=== PATIENT | female | born 1935 | race Caucasian/White ===

== ENCOUNTER → 2016-09-01 | Outpatient (CLI) | payer OTHER ==
[~2016-09-01] VITALS: Ht 157.5 cm; Wt 82.6 kg
[~2016-09-01] MED LIST: ALEVE220 M1 PO; ALLEVIATE PO; ASPIRIN325 PO; AUGMENTIN 875875 MG PO; CALCIUM 600 MG1 EAC2 PO; CELEBREX 200 M200 MG PO; CENTRUM SILVER1 EAC6 PO; CYMBALTA30 MG PO; FISH OIL 1,0001 EAC7 PO; GABAPENTIN PO; HYDROCHLOROT PO; HYDROCHLOROTH12.5 MG PO; HYDROCHLOROTHIA25 M2; HYDROCHLOROTHIA25 M2 PO; IBUPROFEN 200200 M1 PO; IBUPROFEN200 M2 PO; KEFLEX500 MG PO; LEVOTHYROXINE0.05 MG PO; MACULAR SHIELD PO; MACULAR VITAMI0.5 MG PO; MELOXICAM7.5 MG PO; MOBIC7.5 MG PO; MUPIROCIN15 GM; NORCO 5-325 TA1 EACH PO; PRESERVISION T1 EACH PO; SYNTHROID75 MCG PO; TIROSINT75 MCG PO; TOPROL XL25 MG PO; TRAMADOL 50 MG50 MG PO; XARELTO15 MG PO; XARELTO20 MG PO; [UNRECOGNIZED DRUG - OTHER]
--- NOTE | ~2016-09-01 | HPC ---
[facility] [place] [address] PAIN MANAGEMENT CONSULTATION Name: KO HARRISON Room #: REG NIA Gregory#: [id number] Admission: 09/01/16 Attend Phys: Claudio Faustin DO Discharge: Date of : 37 Report #: [id number] THIS REPORT FOR: //name// CC: Raul Faustin HISTORY OF PRESENT ILLNESS: The patient is a very pleasant 81-year-old female typically treated for SI joint dysfunction and lumbar radiculopathy, a component of axial back pain and lumbosacral spondylosis. She has done well with occasional bilateral SI joint injections, last injection being 05/26/2016. She prior had had SI joint injections in February, January, and June of last year. She returns to the pain clinic today noting that despite good relief from the last SI joint injections (90% relief for about 8 weeks), pain is beginning to recur. She notes pain is about 5/10 presently, burning, tender, shooting pain in the low back, bilateral, radiating into the buttocks, but not down the leg. PHYSICAL EXAMINATION: GENERAL: Shows a 81-year-old female with a BMI of 33.3 kilograms per meter squared. Again, subjective pain score is 5 on a 0-10 visual analog scale. VITAL SIGNS: Stable as noted in the EMR. MUSCULOSKELETAL: Rises from a chair using armrest. Gait is tandem. Diffuse tenderness across the SI joints. Positive Jared test bilaterally. ASSESSMENT: Symptomatic sacroiliac joint dysfunction, lumbosacral spondylosis, component of axial back pain, prior history of lumbar radiculopathy, though the latter symptom is relatively quiescent at present. RECOMMENDATION: Repeat SI joint injection under fluoroscopy today. Renewed tramadol 50 mg 100 tablets with two refills. Directions to take one tablet 3-4 times a day as needed for pain. Strongly recommend patient review prior home exercises given by physical therapy and utilize these on a more regular basis to help stabilize SI joint malalignment and movement. PROCEDURE: Bilateral SI joint injection under fluoroscopy. PROCEDURE NOTE: After written and informed consent was obtained including risk of infection, nerve trauma, increased pain and weakness, the patient wishes to proceed. The patient was taken to the fluoroscopy suite, placed in the prone position. The sacroiliac joint was visualized using the C-arm, turned in an oblique fashion to align the joint. The skin overlying the area was cleansed with ChloraPrep. Skin wheal with Xylocaine was raised. A 22 gauge spinal needle was inserted into the inferior aspect of the joint. A low volume extension tubing was then attached to the needle after the stylet was removed. Negative aspiration was accomplished. A 1 mL of Omnipaque was injected which showed spread within the SI joint. 40 mg triamcinolone plus 2 mL of 0.5% [address] [address] PAIN MANAGEMENT CONSULTATION Name: HUNTERAXEL Room #: REG CL Bri#: [id number] Admission: 09/01/16 Attend Phys: Claudio Faustin DO Discharge: Date of : 37 Report #: [id number] preservative-free bupivacaine was injected into the joint. Needle was removed. Attention was then turned to the contralateral joint which was treated in an identical fashion. After both needles were removed the prep was washed off. Two Band-Aids were applied over the puncture sites. The patient was allowed to ambulate to the recovery room, monitored for an appropriate period of time, discharged in good and stable condition. By: 1056 1145 Claudio Faustin DO /madison
[2016-09-01 09:29] VITALS: BP 117/47
== END | disposition home or self-care (01) ==
LOC: PAIN 06:53
DX: M53.3 Sacrococcygeal disorders, not elsewhere classified (principal); G89.29 Other chronic pain; M47.897 Other spondylosis, lumbosacral region; M54.16 Radiculopathy, lumbar region

== ENCOUNTER → 2016-11-13 | Outpatient (CLI) | payer OTHER | LOC: ULTRA 09:31 | DX: M79.605 Pain in left leg (principal); R60.0 Localized edema; Z91.81 History of falling ==

== ENCOUNTER → 2016-12-01 | Outpatient (CLI) | payer OTHER ==
[~2016-12-01] VITALS: Ht 157.5 cm; Wt 83.3 kg
[2016-12-01 10:31] VITALS: BP 107/71
== END | disposition home or self-care (01) ==
LOC: PAIN 06:51
DX: M53.3 Sacrococcygeal disorders, not elsewhere classified (principal); G89.29 Other chronic pain; M47.897 Other spondylosis, lumbosacral region; M54.5 Low back pain; F11.20 Opioid dependence, uncomplicated; Z86.711 Personal history of pulmonary embolism; Z88.8 Allergy status to other drugs, medicaments and biological substances; Z79.899 Other long term (current) drug therapy; Z98.890 Other specified postprocedural states

== ENCOUNTER → 2016-12-25 | Outpatient (CLI) | payer OTHER ==
[~2016-12-25] VITALS: Ht 160 cm; Wt 81.6 kg
--- NOTE | ~2016-12-25 | S ---
[facility] [place] [address] SURGICAL PATH RPT PROCEDURE Name: TRISH HARPER Room #: REG NIA Leanna.#: [id number] Admission: 12/25/16 Date of : 39 Discharge: Report #: [id number] Path Case #: [id number] PATHOLOGY REPORT COLLECTION DATE: 12/25/2016 RECEIVED DATE: 12/25/2016 SUBMITTING PHYS: Dr. Sam Russo OTHER PHYS: Dr. Raul Manley SPECIMEN(S) RECEIVED: A.Bx of mass lesion cecum B.Polyp @ ascending colon x 2 C.Polyp @ hepatic flexure D.Polyp @ transverse colon x3 E.Polyp @ 60cm * * * * * * * * * * * * FINAL DIAGNOSIS: A. Large intestine, mass lesion cecum, endoscopic biopsy: - Superficial fragments of a tubulovillous adenoma. - Negative for high grade dysplasia or invasive malignancy. B. Polyp x 2, at ascending colon, endoscopic biopsy: - All fragments showing tubular adenoma. - Negative for high-grade dysplasia. C. Polyp, at hepatic flexure, endoscopic biopsy: - Minute tubular adenoma. - Negative for high-grade dysplasia. D. Polyp, at transverse colon, endoscopic biopsy: - Tubular adenoma present in multiple fragments. - Negative for high-grade dysplasia. E. Polyp, at 60 cm, endoscopic biopsy: - Tubular adenoma. - Negative for high-grade dysplasia. COMMENT: Part A only co-reviewed by Dr. Jaskaran Gill who concurs with the diagnosis. (IUV:mgr; 12/27/2016) PATHOLOGIST: Ana Richardson M.D. REPORT ELECTRONICALLY SIGNED BY: Ana Richardson M.D. DATE/TIME: 12/27/2016 15:23 * * * * * * * * * * * * GROSS PATHOLOGY: A. Received in formalin labeled "Trish Harper, biopsy of mass lesion [address] [address] SURGICAL PATH RPT PROCEDURE Name: TRISH HARPER Room #: [facility] [id number] Admission: 12/25/16 Date of : 37 Discharge: Report #: [id number] Path Case #: [id number] cecum," are seven segments of jesus soft tissue measuring 0.7 x 0.7 x 0.3 cm in aggregate dimensions and ranging from 0.1 to 0.2 cm in maximum dimension. The specimen is submitted entirely in cassette A1. B. Received in formalin labeled "Trish Harper, polyp at ascending colon 2," are four segments of jesus soft tissue measuring 0.6 x 0.5 x 0.3 cm in aggregate dimensions and ranging from 0.1 to 0.3 cm in maximum dimension. The specimen is submitted entirely in cassette B1. C. Received in formalin labeled "Trish Harper, polyp at hepatic flexure," are two segments of jesus soft tissue measuring 0.6 x 0.4 x 0.3 cm in aggregate dimensions and ranging from 0.2 to 0.4 cm in maximum dimension. The specimen is submitted entirely in cassette C1. D. Received in formalin labeled "Trish Harper, polyp at transverse colon," are nine segments of jesus soft tissue measuring 1.0 x 0.7 x 0.3 cm in aggregate dimensions and ranging from 0.3 to 0.4 cm in maximum dimension. The specimen is submitted entirely in cassette D1. E. Received in formalin labeled "Trish Victorlin, polyp at 60 cm," are six segments of jesus soft tissue measuring 0.7 x 0.6 x 0.3 cm in aggregate dimensions and ranging from 0.1 to 0.3 cm in maximum dimension. The specimen is submitted entirely in cassette E1. ([facility]; 12/26/2016) CLINICAL HISTORY: History of polyps INITIAL CPT CODE(S): A; 66018 B; 61170 C; 42075 D; 01491 E; 34426 Professional services performed by [facility] at [facility] [address], [place] [address] Technical services performed by [facility] at [address] [place] [address], [address], [place] [address]. [facility] [address] [place] [address] PHONE: [phone] DIRECTOR: Brock Son M.D. * * * END OF REPORT * * *
--- NOTE | ~2016-12-25 | P ---
[facility] [place] [address] PROCEDURE REPORT Name: HUNTERKO Nakia Room #: [facility] [id number] Admission: 12/25/16 Attend Phys: Sam Russo MD Discharge: Date of : 37 Report #: [id number] THIS REPORT FOR: //name// CC: Raul Manley DO Sam Russo BRIEF HISTORY: The patient is a 81-year-old woman with a history of colon polyps for high-risk screening colonoscopy. POSTOPERATIVE DIAGNOSES: 1. Mass lesion, cecum. 2. Multiple colon polyps. 3. Moderate diverticulosis coli. MEDICATIONS: Deep sedation with propofol per anesthesia. SPECIMENS: 1. Biopsies of cecal mass lesion. 2. Polyps in the ascending colon times 2. 3. Hepatic flexure polyp. 4. Colon polyps times 3. 5. Polyp at 60. ESTIMATED BLOOD LOSS: 300 mL. PROCEDURE: Colonoscopy to the terminal ileum with snare polypectomy and biopsy. FINDINGS: Prior to propofol sedation, procedure of colonoscopy was discussed with the patient as well as potential risks and its complications. She indicates she understands and desires to proceed. DESCRIPTION OF PROCEDURE: With the patient in the left lateral decubitus position, digital examination was completed, which revealed no abnormalities. Subsequently, [employer] video colonoscope was introduced into the rectum, advanced under direct vision to the cecum. Done with minimal difficulty. The cecum was identified by the ileocecal valve and the appendiceal orifice. I was able to briefly advance the scope across the ileocecal valve and visualize the distal terminal ileum. At that point, the scope was slowly withdrawn and careful circumferential views obtained. Examination of the cecum revealed a polypoid mass lesion essentially at the junction of the ascending colon and the cecum. It was a very bulky mass and thought to be about 4 cm in greatest dimension. It was also over a fold. It appeared to be a sessile polyp. I could not visualize the entire base of the polyp. Essentially, the polyp was depressed, raising a possibility this may be a malignant process, although it did not appear to be overtly malignant. At that point, the scope was slowly withdrawn and careful circumferential views obtained. As we withdrew the scope, multiple biopsies [facility] [address] [place] [address] PROCEDURE REPORT Name: KO HARRISON Room #: [id number] Admission: 12/25/16 Attend Phys: Sam Russo MD Discharge: Date of : 37 Report #: [id number] were obtained of the polypoid cecal mass lesion. In the proximal ascending colon, 2 sessile polyps were seen in the range of 5-7 mm and both were removed by cold snare polypectomy. At the hepatic flexure, a diminutive polyp was seen and removed by biopsy forceps. In the mid transverse colon, there were a total of 3 polyps; 2 were sessile in the range of about 5-6 mm, removed by cold snare polypectomy. There was a diminutive polyp removed by biopsy. At 60 cm, another diminutive polyp was seen and removed by biopsy. Scope was further withdrawn and no additional polypoid lesions were seen. Scope was withdrawn in the rectum and upon retroflexion, no abnormalities were seen. Scope was withdrawn. The patient tolerated the procedure well. CONDITION OF THE PATIENT UPON DISCHARGE: Following procedure, the patient drowsy, aroused and conversant. She will be discharged home when fully ambulatory. INSTRUCTIONS TO THE PATIENT AND FAMILY AT THE TIME OF DISCHARGE: Multiple polyps identified and removed as described above. The cecal mass lesion was quite bulky and I could not see the entire base and it felt to be too large to remove safely endoscopically. Therefore, multiple biopsies obtained. In addition, there was some depression in the center of the polyp, raising a possibility this may be a malignant process. We will follow up on the path report and make further recommendations. However, she is going to need surgical intervention for the large cecal polypoid mass lesion. The remainder of the colon was clear of polyps. We will follow up on path and make further recommendation, but may need to consider followup colon exam in 1 year. We will discuss further with the patient. <ELECTRONICALLY SIGNED> By: Sam Russo MD 12/26/16 0744 0833 1425 Sam Russo MD /nt
== END ==
LOC: GI
DX: Z09 Encounter for follow-up examination after completed treatment for conditions other than malignant neoplasm (principal); Z87.19 Personal history of other diseases of the digestive system; D12.2 Benign neoplasm of ascending colon; D12.3 Benign neoplasm of transverse colon; D12.4 Benign neoplasm of descending colon; K57.30 Diverticulosis of large intestine without perforation or abscess without bleeding
CPT/HCPCS: 62110; 62900

== ENCOUNTER 2017-01-30 08:38 | Inpatient (IN) | payer OTHER ==
[~2017-01-30] VITALS: Ht 157.5 cm; Wt 75.7 kg
--- NOTE | ~2017-01-30 | EKG ---
[place] [address] [employer] [facility] [place] [address] ELECTROCARDIOGRAM REPORT Name: KO HARRISON Room #: 432-P ADM IN M.R.#: [id number] Admission: 01/30/17 Attend Phys: Raul Watson DO Discharge: Date of : 37 Report #: [id number] THIS REPORT FOR: //name// [facility] ED Test Date: 2017-01-30 Test Time: 09:41:01 Pat Name: KO HARRISON Department: Room: 432 Gender: F Presidential Support Specialist: Dilip TELLO : 1935 Requested By: Damian Laguna Order Number: [id number] MD: Victor Hugo Wall Measurements Intervals Bolt Rate: 76 P: -2 NH: 153 QRS: 16 QRSD: 97 T: 38 QT: 416 QTc: 468 Interpretive Statements Sinus rhythm Abnormal R-wave progression, early transition Compared to ECG 08/17/2014 11:44:[address] and T-wave abnormality no longer present QT interval has shortened Electronically Signed On 01-30-2017 17:58:34 CDT by Victor Hugo Wall [email or web address] <ELECTRONICALLY SIGNED> By: Victor Hugo Wall MD, [facility] 01/30/17 1758 0941 0941 Victor Hugo Wall MD, [facility] /EPI
[2017-01-30 08:46] VITALS: BP 99/65
[2017-01-30] MEDS ORDERED: ATIVAN0.5 MG PO (08:57)
[2017-01-30] MEDS ORDERED: ZYRTEC10 M5 PO (08:57)
[2017-01-30 09:29] LABS: HEMATOCRIT 28.7 % (37.0-47.0); HEMOGLOBIN 9.1 gm/dL (12.0-15.0); MCH 21.9 pg (26.0-34.0); MCHC 31.7 g/dL (28.0-37.0); PLATELET COUNT 386 thou/uL (150-400); RBC 4.16 mil/uL (4.20-5.00); WBC 11.7 thou/uL (4.0-11.0)
[2017-01-30 09:33] LABS: MANUAL DIFF YES
[2017-01-30 09:38] LABS: ANION GAP 12 mmol/L (7-16); BUN 16 mg/dL (7-18); CALCIUM 8.5 mg/dL (8.5-10.1); CHLORIDE 109 mmol/L (98-107); CO2 23 mmol/L (21-32); CREATININE 0.6 mg/dL (0.6-1.0); GLUCOSE 100 mg/dL (74-106); POTASSIUM 3.1 mmol/L (3.5-5.1); SODIUM 144 mmol/L (136-145)
[2017-01-30 09:47] LABS: ALBUMIN 2.2 g/dL (3.4-5.0); ALKALINE PHOSPHATASE 83 U/L (46-116); MAGNESIUM 1.9 mg/dL (1.8-2.4); SGOT 17 U/L (15-37); SGPT 10 U/L (30-65); TOTAL BILIRUBIN 0.3 mg/dL (<0.1-1.0); TOTAL PROTEIN 5.9 g/dL (6.4-8.2); TROPONIN-I < 0.04 ng/mL (<0.04-0.07)
[2017-01-30 10:08] LABS: ABSOLUTE NEUTROPHILS 8.2 thou/uL (1.4-8.2); ANISOCYTOSIS 1+; HYPOCHROMASIA 2+; METAMYELOCYTES 1 %; MICROCYTES 3+; PLATELET ESTIMATE NORMAL; TOTAL CELL COUNT 100
[2017-01-30 10:39] LABS: URINE BILIRUBIN 1+ (Negative); URINE BLOOD NEGATIVE (Negative); URINE COLOR YELLOW; URINE GLUCOSE-RANDOM* NEGATIVE (Negative); URINE KETONES 2+ (Negative); URINE LEUKOCYTES-REFLEX NEGATIVE (Negative); URINE PROTEIN (DIPSTICK) 2+ (Negative); URINE SPECIFIC GRAVITY >= 1.030 (1.003-1.035); URINE UROBILINOGEN 0.2 E.U./dl (0.2-1.0)
[2017-01-30 10:43] LABS: ICTOTEST (BILI CONFIRMATORY) Negative (Negative)
[2017-01-30 10:48] VITALS: BP 98/62
[2017-01-30 10:50] LABS: CALCIUM OXALATE >10 Many /LPF (None Seen); CASTS None Seen /LPF (None Seen); SQUAMOUS 4-10 Moderate /LPF (0-3); URINE RBC None Seen /HPF (0-2); URINE WBC-REFLEX None Seen /HPF (0-5)
[2017-01-30 11:25] VITALS: BP 106/55
[2017-01-30 11:40] VITALS: BP 111/68
[2017-01-30 16:00] VITALS: BP 111/57
[2017-01-30 20:00] VITALS: BP 107/62
[2017-01-31 00:05] VITALS: BP 110/58
[2017-01-31 06:00] VITALS: BP 99/62
[2017-01-31 06:18] LABS: HEMATOCRIT 26.5 % (37.0-47.0); HEMOGLOBIN 8.5 gm/dL (12.0-15.0); MCH 22.4 pg (26.0-34.0); MCHC 32.3 g/dL (28.0-37.0); MCV 69.4 fL (80.0-100.0); PLATELET COUNT 395 thou/uL (150-400); RBC 3.81 mil/uL (4.20-5.00); RDW 18.8 % (10.5-14.5); WBC 10.1 thou/uL (4.0-11.0)
[2017-01-31 06:21] LABS: CALCIUM 7.8 mg/dL (8.5-10.1); CREATININE 0.5 mg/dL (0.6-1.0); POTASSIUM 3.3 mmol/L (3.5-5.1)
[2017-01-31 06:25] LABS: MANUAL DIFF YES
[2017-01-31 08:06] VITALS: BP 95/58
[2017-01-31 08:11] LABS: ABSOLUTE NEUTROPHILS 6.2 thou/uL (1.4-8.2); ANISOCYTOSIS 2+; ATYPICAL LYMPHS 1 %; HYPOCHROMASIA 2+; METAMYELOCYTES 2 %; MICROCYTES 2+; TOTAL CELL COUNT 100
[2017-01-31 16:30] VITALS: BP 111/62
[2017-01-31 20:00] VITALS: BP 101/59
[2017-02-01 05:11] VITALS: BP 104/57
[2017-02-01 06:29] LABS: HEMATOCRIT 24.4 % (37.0-47.0); HEMOGLOBIN 7.9 gm/dL (12.0-15.0); MCH 22.2 pg (26.0-34.0); MCHC 32.2 g/dL (28.0-37.0); RBC 3.53 mil/uL (4.20-5.00); RDW 18.9 % (10.5-14.5); WBC 9.2 thou/uL (4.0-11.0)
[2017-02-01 06:34] LABS: CALCIUM 7.7 mg/dL (8.5-10.1); CREATININE 0.5 mg/dL (0.6-1.0); POTASSIUM 3.1 mmol/L (3.5-5.1)
[2017-02-01 07:21] VITALS: BP 102/60
[2017-02-01] MEDS ORDERED: FIBERCON CHEWA625 MG PO (11:49)
[2017-02-01 12:39] VITALS: BP 102/60
[2017-02-01 12:42] VITALS: BP 102/60
[2017-02-01 13:31] LABS: URINE BLOOD NEGATIVE (Negative); URINE COLOR YELLOW; URINE GLUCOSE-RANDOM* NEGATIVE (Negative); URINE KETONES NEGATIVE (Negative); URINE LEUKOCYTES-REFLEX NEGATIVE (Negative); URINE PROTEIN (DIPSTICK) 1+ (Negative); URINE SPECIFIC GRAVITY >= 1.030 (1.003-1.035); URINE UROBILINOGEN 0.2 E.U./dl (0.2-1.0)
[2017-02-01 13:39] LABS: ICTOTEST (BILI CONFIRMATORY) Negative (Negative)
[2017-02-01 13:42] LABS: SQUAMOUS 0-3 Few /LPF (0-3)
[2017-02-01 13:43] LABS: CASTS None Seen /LPF (None Seen); CRYSTALS None Seen /LPF (None Seen); URINE RBC None Seen /HPF (0-2); URINE WBC-REFLEX 0-5 Rare /HPF (0-5)
[2017-02-01 13:44] LABS: URINE BILIRUBIN NEGATIVE (Negative)
[2017-02-01 15:05] VITALS: BP 102/60
== END 2017-02-01 16:20 | disposition home health service (06) | DRG 391 ==
LOC: ER 08:38 → EROBS 10:42 → 4E 10:42
PROVIDERS: Emergency Medicine; Family Medicine
DX: R19.7 Diarrhea, unspecified (principal); E43 Unspecified severe protein-calorie malnutrition; R10.9 Unspecified abdominal pain; R11.2 Nausea with vomiting, unspecified; I10 Essential (primary) hypertension; E03.9 Hypothyroidism, unspecified; D64.9 Anemia, unspecified; E86.0 Dehydration; E87.6 Hypokalemia; Z96.1 Presence of intraocular lens; Z86.73 Personal history of transient ischemic attack (TIA), and cerebral infarction without residual deficits; Z86.711 Personal history of pulmonary embolism; Z90.49 Acquired absence of other specified parts of digestive tract; Z79.01 Long term (current) use of anticoagulants; Z79.899 Other long term (current) drug therapy; Z90.710 Acquired absence of both cervix and uterus; Z98.42 Cataract extraction status, left eye; Z98.41 Cataract extraction status, right eye; Z88.8 Allergy status to other drugs, medicaments and biological substances
CPT/HCPCS: 10084

== ENCOUNTER → 2017-02-19 | Outpatient (CLI) | payer OTHER ==
[~2017-02-19] VITALS: Ht 157.5 cm; Wt 75.8 kg
[~2017-02-19] MED LIST changes: +ATIVAN0.5 MG PO; +FIBERCON CHEWA625 MG PO; +ZYRTEC10 M5 PO
--- NOTE | ~2017-02-19 | HPC ---
[facility] [address] [address] PAIN MANAGEMENT CONSULTATION Name: KO HARRISON Room #: REG NIA Gregory#: [id number] Admission: 02/19/17 Attend Phys: Claudio Faustin DO Discharge: Date of : 37 Report #: [id number] THIS REPORT FOR: //name// CC: Raul Faustin The patient is a very pleasant 81-year-old female well known to pain clinic, typically treated for lumbar radiculopathy and SI mediated pain, last visit 12/01/2016. We proceeded with bilateral SI joint injection with excellent improvement of pain. Unfortunately, in the interval since we last saw her, the patient had colon resection 01/15/2017. Subsequent to that, she developed pulmonary embolism and is currently on Xarelto. She has recurrent exquisite left low back pain noted after the surgery. She notes she is quite bedridden for long time. She had a very strong and postoperative course. She notes she is getting a little better recently, but still rates her pain 3 on a VAS at present, and gets up to a 6, last couple of days, aching, tender, burning pain in the left low back, does not radiating below the knee. PHYSICAL EXAMINATION: GENERAL: Shows pleasant 81-year-old female, BMI is 30.6 kilograms per meter squared. Vital signs stable as noted in the EMR. MUSCULOSKELETAL: Rises from chair using armrest exquisitely tender over the left SI with positive Jared test on this side. ASSESSMENT: Sacroiliac joint dysfunction by clinical exam (left). History of lumbosacral spondylosis and lumbar radiculopathy relatively quiescent at present. New diagnosis of pulmonary embolism, currently on Xarelto. RECOMMENDATION: Left SI joint injection under fluoroscopy today. Follow up simply as needed. PROCEDURE NOTE: Left SI joint injection under fluoroscopy. PROCEDURE: After written informed consent was obtained, the patient was taken to the fluoroscopy suite, placed in prone position. After sterile prep and drape, skin wheal with Xylocaine was raised. A #22-gauge stylet needle was placed to contact the inferior aspect of left SI joint. Negative aspiration was accomplished. 2 mL of 0.5% preservative-free bupivacaine plus 40 mg triamcinolone was injected into and around the joint. Needle was removed. The area was cleansed, Band-Aids applied. The patient was monitored for an appropriate period of time, discharged in good and stable condition. By: [id number] Claudio Faustin DO /nt
[2017-02-19 13:04] VITALS: BP 98/61
== END | disposition home or self-care (01) ==
LOC: PAIN 07:18
DX: M53.3 Sacrococcygeal disorders, not elsewhere classified (principal); M47.897 Other spondylosis, lumbosacral region; M54.16 Radiculopathy, lumbar region; I26.99 Other pulmonary embolism without acute cor pulmonale; Z87.19 Personal history of other diseases of the digestive system; Z98.890 Other specified postprocedural states; Z88.2 Allergy status to sulfonamides; Z88.8 Allergy status to other drugs, medicaments and biological substances

== ENCOUNTER → 2017-05-18 | Outpatient (CLI) | payer OTHER ==
[~2017-05-18] VITALS: Ht 157.5 cm; Wt 75.9 kg
--- NOTE | ~2017-05-18 | HPC ---
[facility] [place] [address] PAIN MANAGEMENT CONSULTATION Name: KO HARRISON Room #: REG NIA Gregory#: [id number] Admission: 05/18/17 Attend Phys: Claudio Faustin DO Discharge: Date of : 37 Report #: [id number] THIS REPORT FOR: //name// CC: Raul Faustin HISTORY OF PRESENT ILLNESS: The patient is a pleasant 81-year-old female, long treated for lumbar radiculopathy, bilateral SI mediated pain, lumbosacral spondylosis, requiring complex medication management. She has been stable on tramadol 50 mg 3-4 times a day, limit 100 tablets for 30 days. She had left SI joint injection at last visit. Returns to pain clinic today. We had a long discussion today. She had a colon resection on 01/15/2017. She had a subsequent pulmonary embolism and is currently on Xarelto. She did have exacerbation of left low back pain after the surgery, hence, the left SI joint injection at last visit. Returns to pain clinic today noting the SI injection helped, the pain has recurred. She specifically notes 80% relief for a few months with the last injection. PHYSICAL EXAMINATION: Today shows a 81-year-old female, BMI is 30.6 kilograms per meter squared. Blood pressure 94/73, pulse 78, respiration 16, oxygen saturation 95%. Rises from chair using armrest. Very tender over the SI joints bilaterally. Lower extremity strength symmetric. Straight leg raise is negative. Lumbar radicular symptoms are relatively quiescent at present. ASSESSMENT: 1. Bilateral sacroiliac joint dysfunction by clinical exam and history, lumbosacral spondylosis. 2. History of lumbar radiculopathy requiring high risk complex medication management. RECOMMENDATION: 1. Continue tramadol, I have taken the liberty of writing for 100 tablets with 3 refills. 2. Bilateral SI joint injection under fluoroscopy today. The patient is allowed to continue her Xarelto. I told her we will need her off Xarelto if we consider an epidural injection at some point, however, radicular symptoms are fairly minor at this point. PROCEDURE: Bilateral SI joint injection under fluoroscopy. INDICATION: Symptomatic bilateral SI mediated pain, lumbosacral spondylosis. PROCEDURE NOTE: After written and informed consent was obtained including risk of infection, nerve trauma, increased pain and weakness, the patient wishes to proceed. The patient was taken to the fluoroscopy suite, placed in the prone [address] [address] PAIN MANAGEMENT CONSULTATION Name: HUNTERKO Room #: REG NIA Gregory#: [id number] Admission: 05/18/17 Attend Phys: Claudio Faustin DO Discharge: Date of : 37 Report #: [id number] position. The sacroiliac joint was visualized using the C-arm, turned in an oblique fashion to align the joint. The skin overlying the area was cleansed with ChloraPrep. Skin wheal with Xylocaine was raised. A 22 gauge spinal needle was inserted into the inferior aspect of the joint. A low volume extension tubing was then attached to the needle after the stylet was removed. Negative aspiration was accomplished. A 1 mL of Omnipaque was injected which showed spread within the SI joint. 40 mg triamcinolone plus 2 mL of 0.5% preservative-free bupivacaine was injected into the joint. Needle was removed. Attention was then turned to the contralateral joint which was treated in an identical fashion. After both needles were removed the prep was washed off. Two Band-Aids were applied over the puncture sites. The patient was allowed to ambulate to the recovery room, monitored for an appropriate period of time, discharged in good and stable condition. By: 1445 0113 Claudio Faustin DO /madison
[2017-05-18 12:57] VITALS: BP 94/73
== END | disposition home or self-care (01) ==
LOC: PAIN 07:03
DX: M53.3 Sacrococcygeal disorders, not elsewhere classified (principal); M47.897 Other spondylosis, lumbosacral region; M54.16 Radiculopathy, lumbar region; D64.9 Anemia, unspecified; Z79.891 Long term (current) use of opiate analgesic; Z86.711 Personal history of pulmonary embolism; Z79.899 Other long term (current) drug therapy

== ENCOUNTER → 2017-08-27 | Outpatient (CLI) | payer OTHER ==
--- NOTE | ~2017-08-27 | 2DMMODE ---
[facility] [place] [address] 2 D/M-MODE ECHOCARDIOGRAM Name: KO HARRISON Room #: REG [facility]#: [id number] Admission: 08/27/17 Attend Phys: Chris Arrington MD Discharge: Date of : 39 Date of Service: 08/27/17 1128 Report #: [id number] THIS REPORT FOR: //name// APPROVED REPORT Study performed: 08/27/2017 10:09:42 EXAM: Comprehensive 2D, Doppler, and color-flow Echocardiogram Patient Location: Echo lab Status: routine BSA: 1.74 HR: 52 bpm BP: 139/90 mmHg Other Information Study Quality: Good, low parasternal window Indications Dyspnea 2D Dimensions RVDd: 28.29 mm LVEF(%): 66.75 (>50%) IVSd: 11.21 (7-11mm) LVOT Diam: 19.66 (18-24mm) LVDd: 38.33 mm PWd: 11.08 (7-11mm) LVDs: 24.41 (25-40mm) Aortic Root: 29.47 mm IVC: 23.00 mm Shannon's LVEF: 66.75 % Volumes Left Atrial Volume (Systole) Single Plane 4CH: 25.05 mL Single Plane 2CH: 55.74 mL LA ESV Index: 23.00 mL/m2 Aortic Valve AoV Peak Balaji.: 1.60 m/s AO Peak Gr.: 10.24 mmHg LVOT Max P.76 mmHg LVOT Max V: 0.97 m/s GERBER Vmax: 1.84 cm2 Mitral Valve E/A Ratio: 0.7 MV Decel. Time: 244.01 ms MV E Max Balaji.: 0.70 m/s [facility] [address] [place] [address] 2 D/M-MODE ECHOCARDIOGRAM Name: KO HARRISON Room #: REG [facility]#: [id number] Admission: 08/27/17 Attend Phys: Chris Arrington MD Discharge: Date of : 39 Date of Service: 08/27/17 1128 Report #: [id number] MV A Balaji.: 0.96 m/s MV PHT: 70.76 ms IVRT: 152.25 ms Pulmonary Valve PV Peak Balaji.: 0.89 m/s PV Peak Gr.: 3.15 mmHg Pulmonary Vein P Vein S: 0.51 m/s P Vein A: 0.31 m/s P Vein D: 0.32 m/s P Vein A Dur.: 100.3 msec P Vein S/D Ratio: 1.59 Tricuspid Valve RAP Estimate: 10.00 mmHg Left Ventricle The left ventricle is normal size. There is normal left ventricular wall thickness. The left ventricular systolic function is normal. The left ventricular ejection fraction is within the normal range. LVEF is 55%. Mild diastolic dysfunction is present (impaired relaxation pattern). Right Ventricle The right ventricle is normal size. The right ventricular systolic function is normal. Atria The left atrium size is normal. The right atrium size is normal. Aortic Valve The aortic valve is normal in structure. No aortic regurgitation is present. There is no aortic valvular stenosis. Mitral Valve Mitral valve leaflets are mildly thickened. Trace to mild mitral regurgitation. No evidence of mitral valve stenosis. Tricuspid Valve The tricuspid valve is normal in structure. Trace tricuspid regurgitation. Unable to assess PA pressure. Pulmonic Valve Pulmonic valve is not well visualized. [employer] [place] [facility] [address] [place] [address] 2 D/M-MODE ECHOCARDIOGRAM Name: KO HARRISON Nakia Room #: REG CL [facility]#: [id number] Admission: 08/27/17 Attend Phys: Chris Arrnigton MD Discharge: Date of : 39 Date of Service: 08/27/17 1128 Report #: [id number] The aortic root is normal in size. IVC is dilated and collapses >50% with inspiration. Pericardium There is no pericardial effusion. <Conclusion> The left ventricle is normal size. There is normal left ventricular wall thickness. The left ventricular systolic function is normal. Mild diastolic dysfunction is present (impaired relaxation pattern). The right ventricle is normal size. The left atrium size is normal. There is no aortic valvular stenosis. Trace to mild mitral regurgitation. <ELECTRONICALLY SIGNED> By: Chris Arrington MD 08/27/17 1128 1128 Chris Arrington MD /INF
== END ==
LOC: CV 07:35
DX: I50.32 Chronic diastolic (congestive) heart failure (principal)

== ENCOUNTER → 2017-10-19 | Outpatient (CLI) | payer OTHER ==
[~2017-10-19] VITALS: Ht 157.5 cm; Wt 73.2 kg
--- NOTE | ~2017-10-19 | HPC ---
[facility] [place] [address] PAIN MANAGEMENT CONSULTATION Name: KO HARRISON Room #: REG NIA Gregory#: [id number] Admission: 10/19/17 Attend Phys: Claudio Faustin DO Discharge: Date of : 37 Report #: [id number] THIS REPORT FOR: //name// CC: Raul Faustin The patient is an 82-year-old female, well known to pain clinic, typically treated for SI joint dysfunction, axial back pain, lumbosacral spondylosis without myelopathy. The patient has had good relief with bilateral SI joint injections over time. Last injection was 08/24/2017. Prior she had longer relief with SI joints. I sent her to PT in the past, though she really did not do exercises on a regular basis. 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 This acutely exacerbated axial back pain. Pain is in the low back, buttocks, radiating down to the posterior thighs, but not below the knee. PHYSICAL EXAMINATION: GENERAL: Shows an 82-year-old female. Vital signs are as noted on the EMR. Rises from chair using the armrest. She has a markedly antalgic gait. Diffuse tenderness across the SI joints. Grossly positive Jared test, Gaenslen's test, and pelvic distraction. Lower extremity strength is generally symmetric. Straight leg raise is negative. DIAGNOSES: Symptomatic sacroiliac joint dysfunction by clinical exam and history, lumbosacral spondylosis without myelopathy. RECOMMENDATION: 1. We had a long discussion about the need to strengthen core muscles. The patient has agreed somewhat reluctantly to resume core exercises on a daily basis. I have taken the liberty of writing for physical therapy, twice a week for 2-3 weeks simply to develop a home regimen of core stabilization exercises she can do on a daily basis. 2. I will renew tramadol 50 mg 1 tablet 3-4 times a day as needed for pain, limit 100 tablets for 30 days with 3 refills. 3. SI joint injection under fluoroscopy today, follow up simply as needed. I did tell the patient that I will be leaving practice, she can follow up with Dr. Raul Faustin or Dr. Kartik Andres as needed depending on where she is able to get in for scheduling. PROCEDURE: Bilateral SI joint injection under fluoroscopy. PROCEDURE NOTE: After written and informed consent was obtained including risk of infection, nerve trauma, increased pain and weakness, the patient wishes to proceed. The patient was taken to the fluoroscopy suite, placed in the prone position. The sacroiliac joint was visualized using the C-arm, turned in an oblique fashion to align the joint. The skin overlying the area was cleansed with ChloraPrep. Skin wheal with Xylocaine was raised. A 22 gauge spinal [address] [address] PAIN MANAGEMENT CONSULTATION Name: KO HARRISON Room #: REG CLTello Gregory#: [id number] Admission: 10/19/17 Attend Phys: Claudio Faustin DO Discharge: Date of : 37 Report #: [id number] needle was inserted into the inferior aspect of the joint. A low volume extension tubing was then attached to the needle after the stylet was removed. Negative aspiration was accomplished. A 1 mL of Omnipaque was injected which showed spread within the SI joint. 40 mg triamcinolone plus 2 mL of 0.5% preservative-free bupivacaine was injected into the joint. Needle was removed. Attention was then turned to the contralateral joint which was treated in an identical fashion. After both needles were removed the prep was washed off. Two Band-Aids were applied over the puncture sites. The patient was allowed to ambulate to the recovery room, monitored for an appropriate period of time, discharged in good and stable condition. <ELECTRONICALLY SIGNED> By: Claudio Faustin DO 10/22/17 0751 0905 1751 Claudio Faustin DO /nt
[2017-10-19 08:35] VITALS: BP 130/71
== END ==
LOC: PAIN 07:15
DX: M53.3 Sacrococcygeal disorders, not elsewhere classified (principal); G89.29 Other chronic pain; M47.27 Other spondylosis with radiculopathy, lumbosacral region; Z98.890 Other specified postprocedural states; Z88.8 Allergy status to other drugs, medicaments and biological substances; Z79.899 Other long term (current) drug therapy

== ENCOUNTER → 2018-08-26 | Outpatient (CLI) | payer OTHER | LOC: HYPER 08-19 06:56 | DX: L97.822 Non-pressure chronic ulcer of other part of left lower leg with fat layer exposed (principal); E03.9 Hypothyroidism, unspecified; F41.9 Anxiety disorder, unspecified; Z79.01 Long term (current) use of anticoagulants; Z90.710 Acquired absence of both cervix and uterus; Z86.73 Personal history of transient ischemic attack (TIA), and cerebral infarction without residual deficits ==

== ENCOUNTER → 2018-09-02 | Outpatient (CLI) | payer OTHER | LOC: HYPER 06:49 | DX: L97.822 Non-pressure chronic ulcer of other part of left lower leg with fat layer exposed (principal); E03.9 Hypothyroidism, unspecified; F41.9 Anxiety disorder, unspecified; Z79.01 Long term (current) use of anticoagulants; Z86.73 Personal history of transient ischemic attack (TIA), and cerebral infarction without residual deficits ==

== ENCOUNTER → 2018-09-16 | Outpatient (CLI) | payer OTHER | LOC: HYPER 06:48 | DX: L97.822 Non-pressure chronic ulcer of other part of left lower leg with fat layer exposed (principal); E03.9 Hypothyroidism, unspecified; R60.0 Localized edema; F41.9 Anxiety disorder, unspecified; Z79.01 Long term (current) use of anticoagulants; Z86.73 Personal history of transient ischemic attack (TIA), and cerebral infarction without residual deficits; W55.01XD Bitten by cat, subsequent encounter ==

== ENCOUNTER → 2018-09-30 | Outpatient (CLI) | payer OTHER | LOC: HYPER 07:00 | DX: L97.822 Non-pressure chronic ulcer of other part of left lower leg with fat layer exposed (principal); R60.0 Localized edema; E03.9 Hypothyroidism, unspecified; F41.9 Anxiety disorder, unspecified; Z86.73 Personal history of transient ischemic attack (TIA), and cerebral infarction without residual deficits; Z79.01 Long term (current) use of anticoagulants ==

== ENCOUNTER 2019-03-31 09:53 | Emergency (ER) | payer OTHER ==
[~2019-03-31] VITALS: Ht 157.5 cm; Wt 74.8 kg
[2019-03-31 11:18] LABS: HEMATOCRIT 41.5 % (37.0-47.0); HEMOGLOBIN 13.5 gm/dL (12.0-15.0); MCH 29.1 pg (26.0-34.0); MCHC 32.5 g/dL (28.0-37.0); MCV 89.6 fL (80.0-100.0); PLATELET COUNT 322 thou/uL (150-400); RBC 4.64 mil/uL (4.20-5.00); RDW 14.8 % (10.5-14.5); WBC 6.3 thou/uL (4.0-11.0)
[2019-03-31 11:26] LABS: CALCIUM 8.6 mg/dL (8.5-10.1); CREATININE 0.7 mg/dL (0.6-1.0); POTASSIUM 3.5 mmol/L (3.5-5.1)
[2019-03-31 11:32] LABS: ALBUMIN 3.1 g/dL (3.4-5.0); APTT 31.3 Seconds (24.5-32.8); INR 1.1; PROTIME 11.4 Seconds (9.3-11.4); TOTAL BILIRUBIN 0.4 mg/dL (<0.1-1.0); TOTAL PROTEIN 6.3 g/dL (6.4-8.2)
[2019-03-31 11:40] LABS: ABSOLUTE NEUTROPHILS 2.8 thou/uL (1.4-8.2); ATYPICAL LYMPHS 5 %
[2019-03-31 11:41] LABS: PLATELET ESTIMATE NORMAL
[2019-03-31 12:18] VITALS: BP 113/56
[2019-03-31] MEDS ORDERED: TRAMADOL 50 MG50 MG PO (12:45)
[2019-03-31] MEDS ORDERED: KEFLEX500 M1 PO (12:45)
== END 2019-03-31 13:10 | disposition home or self-care (01) ==
LOC: ER 09:53
PROVIDERS: Emergency Medicine
DX: S30.0XXA Contusion of lower back and pelvis, initial encounter (principal); S80.11XA Contusion of right lower leg, initial encounter; S80.12XA Contusion of left lower leg, initial encounter; S50.311A Abrasion of right elbow, initial encounter; L03.115 Cellulitis of right lower limb; I10 Essential (primary) hypertension; E03.9 Hypothyroidism, unspecified; M79.605 Pain in left leg; G89.29 Other chronic pain; Z86.711 Personal history of pulmonary embolism; Z90.710 Acquired absence of both cervix and uterus; Z90.49 Acquired absence of other specified parts of digestive tract; Z86.73 Personal history of transient ischemic attack (TIA), and cerebral infarction without residual deficits; Z88.8 Allergy status to other drugs, medicaments and biological substances; W18.39XA Other fall on same level, initial encounter; Y93.89 Activity, other specified; Y92.89 Other specified places as the place of occurrence of the external cause; Y99.8 Other external cause status

== ENCOUNTER → 2019-09-01 | Outpatient (CLI) | payer OTHER ==
[~2019-09-01] MED LIST changes: +KEFLEX500 M1 PO
== END ==
LOC: SJCVCIMAG 09:15
PROVIDERS: ATTEND Internal Medicine Cardiovascular Disease
DX: I08.1 Rheumatic disorders of both mitral and tricuspid valves (principal); E03.9 Hypothyroidism, unspecified; Z90.49 Acquired absence of other specified parts of digestive tract; Z90.710 Acquired absence of both cervix and uterus; Z79.899 Other long term (current) drug therapy; Z86.711 Personal history of pulmonary embolism

== ENCOUNTER → 2020-06-22 | Outpatient (CLI) | payer OTHER ==
[~2020-06-22] VITALS: Ht 157.5 cm; Wt 71.7 kg
[2020-06-22 08:54] VITALS: BP 135/64
--- NOTE | 2020-06-22 09:13 | NUR ---
Pain Clinic Assessment: 1. History of Osteoarthritis: HANDS HIPS History of Rheumatoid Arthritis: Not Applicable 2. Height: 5 ft. 2 in. 157.5 cm. Weight: 158.0 lb. oz. 71.668 kg. Patient's BMI: 28.9 3. Vital Signs: BP: 135/64 Pulse: 67 Resp: 16 Temp: 02 Sat: 95 ECG Mon: 4. Pain Intensity: 4 5. Fall Risk: Dizziness: N Needs help standing or walking: N Fallen in the last 3 months: N Fall risk comments: 6. Patient on Blood Thinner: XARELTO 7. History of Hypertension: Y 8. Opioid Therapy greater than 6 weeks: N Opiate Contract Signed: 9. Risk Assessment Tool Provided: LOW RISK 06/06 10. Functional Assessment Tool: 11. Recreational Drug Use: Never Drug Type: Tobacco Use: Never Smoker Tobacco Type: Amount or Packs/day: How Many Years: Alcohol Use: No Frequency: Quant:
--- NOTE | 2020-06-23 13:35 | HPC ---
[facility] [address] [place] [address] PAIN MANAGEMENT CONSULTATION Name: KO HARRISON Room #: REG [id number] Admission: 06/22/20 Attend Phys: Raul Faustin DO Discharge: Date of : 37 Report #: [id number] THIS REPORT FOR: cc: Anselmo Estrada David J. DO Johnson, James E. DO ~ DATE OF SERVICE: 06/22/2020 REFERRING PHYSICIAN: Raul Manley DO CHIEF COMPLAINT: Bilateral SI joint pain. HISTORY OF PRESENT ILLNESS: As you know, the patient is a very pleasant 85-year-old female who returns today in followup visit to undergo bilateral SI joint injections under fluoroscopic guidance. The patient reports previous injection provided at our clinic at [facility] gave 80% improvement lasting for nearly 6 weeks. Unfortunately, her symptoms have begun to return. She has discontinued her anticoagulant in preparation for today's bilateral SI joint injections. She is denying injury or trauma that may have led to symptom reoccurrence. She states she is recently retired and is living in a more relaxed lifestyle and believes that her symptoms may ultimately improve with reduction in activity. She returns today requesting a refill of her medications and to undergo bilateral SI joint injections under fluoroscopic guidance. ALLERGIES: MELOXICAM and CELECOXIB. CURRENT MEDICATIONS: Tramadol 50 mg 2 tabs q. 6 hours p.r.n. for pain, hydrochlorothiazide 25 mg once a day, Xarelto 20 mg once a day, multivitamin 1 tab per day, levothyroxine 75 mcg a day. SOCIAL HISTORY: The patient denies tobacco, alcohol or IV illicit drug use. She is recently retired. She is unaccompanied at today's visit. IMAGING: No new imaging available. PQRS: The patient has arthritic changes of the lumbar spine, bilateral SI joints, bilateral hips and knees. No rheumatoid arthritis. She is placing current pain score at 4/10. She is not a fall risk, has not had a fall in last 3 months. She is on blood thinners in the form of Xarelto, but discontinued the medication 4 days ago in preparation for today's SI joint injections. She is treated for hypertension. She is on chronic opioids, has a low opioid addiction potential. Pain impact today is 21/70, mild interference to moderate interference of daily activities secondary to pain. PHYSICAL EXAMINATION: [facility] [address] [place] [address] PAIN MANAGEMENT CONSULTATION Name: HUNTERKO Nakia Room #: REG [id number] Admission: 06/22/20 Attend Phys: Raul Faustin DO Discharge: Date of : 37 Report #: [id number] VITAL SIGNS: Blood pressure 135/64, pulse 67, respiratory rate 16 and unlabored. The patient is 95% on room air. Height 5 feet 2 inches tall, weight 158 pounds, BMI calculated 28.9. GENERAL: Well-developed, well-nourished, well-hydrated 85-year-old female appearing stated age, pain is rated today 4/10. HEENT: Normocephalic, atraumatic. Pupils equal and round. The patient is wearing a mask in compliance with COVID-19 regulations. EXTREMITIES: Show no clubbing, no cyanosis, no appreciable edema. MUSCULOSKELETAL: Lower extremity strength remains symmetrical 5/5. Intact to light touch from L1 through S2 dermatomes. Seated straight leg raising negative. Supine straight leg raising negative. Provocating testing of the SI joint is met with increasing pain mainly with pressure on the sacroiliac joint and with mobility of the SI joint in both active and passive range of motion. ASSESSMENT: 1. Bilateral sacroiliac joint pain. 2. Chronic lumbar spine pain secondary to facet arthropathy. 3. Chronic low back pain. 4. Chronic pain syndrome. PLAN: 1. The patient returns today in followup visit requesting to undergo bilateral SI joint injections under fluoroscopic guidance and also to receive refills of her tramadol for which she takes 100 mg up to 3 times a day with good efficacy. The patient states that the combination of treatments provided her good benefit up to 80% improvement in overall pain with previous series of injections and medication changes. She is pleased with response to the treatment and wishes to continue therapy. 2. The patient was provided a prescription of tramadol 50 mg dose. She is to take 2 tabs 3 times a day. She was given #180 tablets to release today, 4 weeks from today, 8 weeks from today, 3 months' worth of medication. All prescriptions sent via e-scribe to local pharmacy. The patient is denying side effects of sleepiness, disorientation, confusion, mental slowing or constipation with use of this therapy. 3. We have reviewed the patient's PDMP. There is no concerning entries on the [place] reports. 4. We have discussed with the patient safeguarding her medications. She will maintain vigilance with the use of the therapy. She is not to carry more than her medications that she needs for the day and she is to safeguard the medications in an area where only she knows medications are present. 5. The patient has been advised risks and benefits of bilateral SI joint injections. She states she wishes to undergo the procedure and wishes to proceed. 6. We will see the patient back in followup visit in 2 months to adjust medications and determine if further interventional treatments would be recommended. [facility] [address] [place] [address] PAIN MANAGEMENT CONSULTATION Name: KO HARRISON Nakia Room #: REG CLI Flynn.#: [id number] Admission: 06/22/20 Attend Phys: Raul Faustin DO Discharge: Date of : 37 Report #: [id number] PROCEDURE NOTE DESCRIPTION OF PROCEDURE: Bilateral SI joint injections under fluoroscopic guidance. After obtaining written consent, the patient was taken back to fluoroscopy suite, placed in prone position with pillow under abdomen to decrease lumbar lordosis. Skin overlying the gluteal sacral area was prepped and draped in aseptic fashion using chlorhexidine. The fluoroscopic imaging device was then placed in position where the joint lines were first visualized; 3 mL of lidocaine 1% was used to anesthetize skin and subcutaneous tissue over each of the injection sites for a total of 6 mL being provided. Two 22-gauge 3-1/2 inch spinal needles with bent tips were advanced towards the right and left SI joints under fluoroscopic guidance. [place] were advanced until reaching the inferior recess of the joints on the right. Needle was then advanced into the joint, but not into the articular cartilage. After negative aspiration for heme, 3 mL of a solution containing 1 mL 40 mg per mL, 40 mg total triamcinolone along with 2 mL bupivacaine 0.5% injected slowly. Our attention was then directed to the left side. Needle was advanced into the joint, but not into the articular cartilage. After negative aspiration for heme, 3 mL of a solution containing 1 mL 40 mg per mL, 40 mg total triamcinolone along with 2 mL bupivacaine 0.5% was injected slowly. Both needles were then retracted care home, flushed with 1 mL of 1% lidocaine and removed. Sterile bandage placed over each of the injection sites. There were no new motor deficits in the lower extremities following procedure. The patient tolerated procedure well, carefully escorted to recovery room in stable condition. No apparent complications. After meeting our discharge criteria, the patient discharged home. <ELECTRONICALLY SIGNED> By: Raul Faustin DO 06/23/20 1335 1239 1316 Raul Faustin DO /nt
== END | disposition home or self-care (01) ==
LOC: PAIN 06:45
PROVIDERS: ATTEND Anesthesiology Pain Medicine
DX: M53.3 Sacrococcygeal disorders, not elsewhere classified (principal); M47.896 Other spondylosis, lumbar region; M54.5 Low back pain; G89.4 Chronic pain syndrome; I10 Essential (primary) hypertension; M19.90 Unspecified osteoarthritis, unspecified site; Z98.890 Other specified postprocedural states; Z79.899 Other long term (current) drug therapy; Z86.711 Personal history of pulmonary embolism; Z79.01 Long term (current) use of anticoagulants; Z88.8 Allergy status to other drugs, medicaments and biological substances

== ENCOUNTER → 2020-10-13 | Outpatient (CLI) | payer OTHER | LOC: SJCVCIMAG 09-16 08:53 | PROVIDERS: ATTEND Internal Medicine Cardiovascular Disease | DX: I49.3 Ventricular premature depolarization (principal); I49.1 Atrial premature depolarization; R00.1 Bradycardia, unspecified; R06.00 Dyspnea, unspecified; R55 Syncope and collapse; R60.9 Edema, unspecified; M19.90 Unspecified osteoarthritis, unspecified site; E03.9 Hypothyroidism, unspecified; Z86.73 Personal history of transient ischemic attack (TIA), and cerebral infarction without residual deficits; Z86.718 Personal history of other venous thrombosis and embolism; Z79.899 Other long term (current) drug therapy; Z88.1 Allergy status to other antibiotic agents ==

== ENCOUNTER 2020-10-31 10:55 | Emergency (ER) | payer OTHER ==
[~2020-10-31] VITALS: Ht 157.5 cm; Wt 65.8 kg
[2020-10-31] MEDS ORDERED: CEPHALEXIN500 MG PO (11:40)
[2020-10-31] MEDS ORDERED: ZOFRAN ODT4 MG PO (11:41)
[2020-10-31 11:50] VITALS: BP 115/68
== END 2020-10-31 11:50 | disposition home or self-care (01) ==
LOC: ER 10:55
DX: S70.362A Insect bite (nonvenomous), left thigh, initial encounter (principal); I10 Essential (primary) hypertension; E03.9 Hypothyroidism, unspecified; Z88.1 Allergy status to other antibiotic agents; Z79.899 Other long term (current) drug therapy; Z90.89 Acquired absence of other organs; W57.XXXA Bitten or stung by nonvenomous insect and other nonvenomous arthropods, initial encounter; Y93.89 Activity, other specified; Y92.89 Other specified places as the place of occurrence of the external cause; Y99.9 Unspecified external cause status

== ENCOUNTER → 2020-11-30 | Outpatient (CLI) | payer OTHER ==
[~2020-11-30] VITALS: Ht 157.5 cm; Wt 68.8 kg
[~2020-11-30] MED LIST changes: +CEPHALEXIN500 MG PO; +ZOFRAN ODT4 MG PO
[2020-11-30 10:50] VITALS: BP 100/66
--- NOTE | 2020-11-30 11:00 | NUR ---
Pain Clinic Assessment: 1. History of Osteoarthritis: HANDS HIPS History of Rheumatoid Arthritis: Not Applicable 2. Height: 5 ft. 2 in. 157.5 cm. Weight: 151.6 lb. oz. 68.765 kg. Patient's BMI: 27.7 3. Vital Signs: BP: 100/66 Pulse: 72 Resp: 16 Temp: 02 Sat: 96 ECG Mon: 4. Pain Intensity: 8 5. Fall Risk: Dizziness: N Needs help standing or walking: N Fallen in the last 3 months: N Fall risk comments: 6. Patient on Blood Thinner: XARELTO 7. History of Hypertension: Y 8. Opioid Therapy greater than 6 weeks: Y Opiate Contract Signed: 9. Risk Assessment Tool Provided: LOW RISK 06/06 10. Functional Assessment Tool: 11. Recreational Drug Use: Never Drug Type: Tobacco Use: Never Smoker Tobacco Type: Amount or Packs/day: How Many Years: Alcohol Use: No Frequency: Quant:
--- NOTE | 2020-12-01 07:43 | HPC ---
[facility] [place] [address] PAIN MANAGEMENT CONSULTATION Name: KO HARRISON Room #: [facility] [id number] Admission: 11/30/20 Attend Phys: Raul Faustin DO Discharge: Date of : 37 Report #: [id number] THIS REPORT FOR: cc: Anselmo Estrada David J. DO Johnson, James E. DO ~ DOC #: [id number] cc: DO Raul Byers DO DATE OF SERVICE: 11/30/2020 REFERRING PHYSICIAN: Raul Manley DO CHIEF COMPLAINT: Bilateral SI joint pain. HISTORY OF PRESENT ILLNESS: As you know, the patient is a pleasant 85-year-old female returning in followup visit to our [facility] office to undergo bilateral SI joint injections under fluoroscopic guidance. She reported the [place] injections provided excellent benefit lasting for a prolonged period of time. She reports at least 5 months' period, she had a 100% improvement in overall pain. Her symptoms have begun to return and she returns today requesting injections of bilateral SI joints and to receive refills of her tramadol therapy that she takes on an as needed basis. She has suffered no injury, no new trauma that may have led to symptom recurrence. She returns today for bilateral SI joint injections under fluoroscopic guidance. ALLERGIES: MELOXICAM, CELECOXIB. CURRENT MEDICATIONS: Tramadol 50 mg q. 6 hours p.r.n. pain, hydrochlorothiazide 25 mg once a day, Xarelto 20 mg once a day, multivitamin one tab per day, levothyroxine 75 mcg per day. SOCIAL HISTORY: The patient denies tobacco, alcohol, or IV or illicit drug use. She is retired, retired years ago, unaccompanied today. IMAGING: No new imaging available. PQRS: The patient has known arthritic changes of lumbar spine, bilateral SI joints, bilateral hips and knees. No rheumatoid arthritis. Pain intensity today is rated at about 8/10. She is not a fall risk, has not had a fall in last 3 months. She is on blood thinners in the form of Xarelto and continues on the medication. She is treated for hypertension. She is on chronic opioids, has a low opioid addiction potential based on assessment tool. Pain impact is 21/70, mild to moderate interference of daily activities secondary to pain. PHYSICAL EXAMINATION: [address] [address] PAIN MANAGEMENT CONSULTATION Name: KO HARRISON Room #: REG CLI Bri#: [id number] Admission: 11/30/20 Attend Phys: Raul Faustin DO Discharge: Date of : 37 Report #: [id number] VITAL SIGNS: Blood pressure 100/66, pulse 72, respiratory rate 16 and unlabored. The patient is 96% on room air. Height 5 feet 2 inches tall, weight 151.6 pounds, BMI calculated 27.7. GENERAL: Well-developed, well-nourished, well-hydrated, 85-year-old female appearing stated age, pain today is rated around 8/10. HEENT: Normocephalic, atraumatic. She is wearing a mask in compliance with COVID-19 regulations. EXTREMITIES: Show no clubbing, no cyanosis. There is 1-2+ nonpitting lower extremity edema. MUSCULOSKELETAL: Lower extremity strength is again symmetrical. Muscle bulk and tone is equal and symmetrical. Seated straight leg raising negative. Supine straight leg raising remains negative. Lumbar provocation testing is met with no increase in pain. Fabere's test is positive for bilateral SI joint pain. Thigh thrust maneuver is positive for SI joint pain. ASSESSMENT: 1. Bilateral sacroiliac joint pain. 2. Chronic lumbar facet arthropathy. 3. Chronic low back pain. 4. Chronic pain. PLAN: 1. The patient returns today in followup visit requesting bilateral SI joint injections under fluoroscopic guidance. The patient reports 100% improvement in overall pain lasting for almost 5 months with the previous injections. Very pleased with response to those injections, returning today requesting next in the series. She has been advised of risks and benefits of this procedure, states understood and wished to proceed. 2. The patient was provided a refill prescription of tramadol 50 mg dose 2 tabs 3 times a day. She was given #180 tablets with releases of today, 4 weeks from today, 8 weeks from today, 3 months' worth of medication. All prescriptions sent via e-scribe to local pharmacy. 3. We plan to see the patient back in followup visit on an as needed basis for the next in the series of bilateral SI joint injections. Otherwise, we will see her back in about 3 months for medication management. 4. We reviewed the patient's PDMP. There is no concerning in the [place] or [place] reports. 5. We reviewed the fact that opiate medications are being used to provide analgesia adequate to support activities of daily living, not attempting to achieve a specific pain score on the 0-10 Visual Analog Scale. The current opiate medications are providing sufficient analgesia to allow the patient to participate in activities of daily living. The patient is not exhibiting any aberrant behavior suggestive of drug diversion. The patient is not having any adverse reactions to medications. The patient is not suffering from daytime somnolence or mental acuity changes. The patient is managing opiate-induced constipation with appropriate xmou-iao-vnsjozi agents and dietary [facility] [address] [place] [address] PAIN MANAGEMENT CONSULTATION Name: HUNTERKO Nakia Room #: REG CLTello Gregory#: [id number] Admission: 11/30/20 Attend Phys: Raul Faustin DO Discharge: Date of : 37 Report #: [id number] considerations. The patient was counseled on concern for caution with operating a motor vehicle while using opiate medications. A physical exam was performed and the patient's functional status was evaluated. All patients with back pain were advised against the bed rest greater than 4 days and were advised to return to normal activities. Pain score assessment was noted and the treatment plan was reviewed with the patient. All current medications, both prescribed and OTC were reviewed and reconciled on the electronic medical record. Tobacco screening was accomplished and smoking cessation was advised when indicated. BMI was noted and diet/exercise modification was recommended for all patients following outside normal parameters. I reviewed with the patient today their responsibilities to safeguard prescription medications, reviewed their responsibility to utilize medications only as prescribed by the physician. They are to seek and receive pain medications only from 1 physician group ( [facility]). They are to use 1 pharmacy and keep the clinic informed if they change pharmacies. Their responsibilities include making followup visits in a timely fashion and to avoid abrupt discontinuation of medication usage. Their responsibilities further include bringing their medications (bottles from the pharmacy with residual pills) to the visit for possible confirmation of pill counts and the patient understands it is their responsibility to submit to random drug screens to ensure both that the medications prescribed are present, and that no other controlled substances are present. All prescriptions provided today were generated electronically. 6. We will see the patient back in followup visit on an as needed basis. DESCRIPTION OF PROCEDURE: Bilateral SI joint injections under fluoroscopic guidance. After obtaining written consent, the patient was taken back to fluoroscopy suite, placed in a prone position with pillow under abdomen to decrease lumbar lordosis. Skin overlying the gluteal sacral area was then prepped and draped in aseptic fashion using chlorhexidine. Fluoroscopic imaging was used to image the joints on the right and left. Optimal position of the joint space was noted once the joint lines were first visualized. Two 22-gauge 3-1/2 inch spinal needles with bent tips were advanced towards the right and left sacroiliac joint under fluoroscopic guidance. [place] were advanced until reaching the inferior recess of the joints, initially on the right and secondarily on the left. The needles were then advanced into the joints, but not into the articular cartilages. After negative aspiration for heme, 3 mL of a solution containing 1 mL of 40 mg per mL 40 mg total triamcinolone along with 2 mL of bupivacaine 0.5% was injected on the right [address] [address] PAIN MANAGEMENT CONSULTATION Name: KO HARRISON Room #: REG NIA Gregory#: [id number] Admission: 11/30/20 Attend Phys: Raul Faustin DO Discharge: Date of : 37 Report #: [id number] side. After negative aspiration for heme, 3 mL of a solution containing 1 mL of 40 mg per mL 40 mg total triamcinolone along with 2 mL of bupivacaine 0.5% was injected on the left side. [place] were then removed approximately half-way, flushed with 1 mL of 1% lidocaine and removed. Sterile bandage placed over injection site. There were no new motor deficits present on the left or right side after the procedure was completed. After meeting our discharge criteria, the patient was then discharged home. Raul Faustin DO JEJ/I <ELECTRONICALLY SIGNED> By: Raul Faustin DO 12/01/20 0743 1247 2232 Raul Faustin DO /nt
== END | disposition home or self-care (01) ==
LOC: PAIN
PROVIDERS: ATTEND Anesthesiology Pain Medicine
DX: M53.3 Sacrococcygeal disorders, not elsewhere classified (principal); M47.896 Other spondylosis, lumbar region; M54.5 Low back pain; G89.29 Other chronic pain; I10 Essential (primary) hypertension; M19.90 Unspecified osteoarthritis, unspecified site; Z98.890 Other specified postprocedural states; Z79.899 Other long term (current) drug therapy

== ENCOUNTER 2020-12-16 15:25 | Inpatient (IN) | payer OTHER ==
[~2020-12-16] VITALS: Ht 157.5 cm; Wt 64.5 kg
[2020-12-16 15:31] VITALS: BP 117/68
[2020-12-16 19:58] LABS: ABSOLUTE NEUTROPHILS 6.1 thou/uL (1.4-8.2); BASOPHILS 0.5 % (0.0-2.0); EOSINOPHILS 0.9 % (0.0-3.0); HEMATOCRIT 42.4 % (37.0-47.0); HEMOGLOBIN 14.2 gm/dL (12.0-15.0); LYMPHOCYTES 27.6 % (24.0-44.0); MCH 29.8 pg (26.0-34.0); MCHC 33.6 g/dL (28.0-37.0); MCV 88.8 fL (80.0-100.0); MONOCYTES 11.2 % (1.0-8.0); PLATELET COUNT 381 thou/uL (150-400); POLYS 59.8 % (36.0-66.0); RBC 4.77 mil/uL (4.20-5.00); RDW 14.5 % (10.5-14.5); WBC 10.2 thou/uL (4.0-11.0)
[2020-12-16 20:08] LABS: ANION GAP 6 mmol/L (7-16); BUN 20 mg/dL (7-18); CALCIUM 8.9 mg/dL (8.5-10.1); CHLORIDE 106 mmol/L (98-107); CO2 30 mmol/L (21-32); CREATININE 0.7 mg/dL (0.6-1.0); GLUCOSE 88 mg/dL (74-106); POTASSIUM 4.8 mmol/L (3.5-5.1); SODIUM 142 mmol/L (136-145)
[2020-12-16 20:12] LABS: APTT 30.3 Seconds (24.5-32.8); INR 1.14; PROTIME 12.4 Seconds (10.5-12.1)
[2020-12-16 20:19] LABS: ALBUMIN 3.5 g/dL (3.4-5.0); SGOT 36 U/L (15-37); SGPT 21 U/L (14-59); TOTAL BILIRUBIN 0.6 mg/dL (0.2-1.0); TOTAL PROTEIN 6.6 g/dL (6.4-8.2); TROPONIN-I <0.06 ng/mL (<0.06)
[2020-12-16 20:48] LABS: URINE BILIRUBIN NEGATIVE (Negative); URINE BLOOD NEGATIVE (Negative); URINE CLARITY CLEAR; URINE COLOR YELLOW; URINE GLUCOSE-RANDOM* NEGATIVE (Negative); URINE KETONES NEGATIVE (Negative); URINE LEUKOCYTES-REFLEX 3+ (Negative); URINE NITRITE-REFLEX NEGATIVE (Negative); URINE PROTEIN (DIPSTICK) NEGATIVE (Negative); URINE SPECIFIC GRAVITY 1.015 (1.005-1.035); URINE UROBILINOGEN 0.2 E.U./dl (0.2-1.0)
[2020-12-16 21:01] LABS: SQUAMOUS 0-3 Few /LPF (0-3)
[2020-12-16 21:02] LABS: BACTERIA-REFLEX 1-9 Few /HPF (None Seen); URINE RBC 1-2 Rare /HPF (NONE SEEN); URINE WBC-REFLEX >25 Many /HPF (0-5)
[2020-12-16 21:03] LABS: WBC CLUMPS Few (None Seen)
[2020-12-16 22:24] VITALS: BP 131/62
[2020-12-16 22:32] VITALS: BP 131/62
[2020-12-16 23:06] VITALS: BP 102/72
--- NOTE | 2020-12-17 03:01 | NUR ---
PT ADMITTED TO ROOM 208 FROM ER, NIH SCORE 0, PASSED SWALLOW EVAL, NO C/O PAIN, VSS, IV ANTIBIOTIC GIVEN, US IN ROOM DOING US OF CAROTIDS, MRI INFO SHEET FILLED OUT AND FAXED TO MRI, WILL CON'T TO MONITOR PER PPOC.
[2020-12-17 04:13] LABS: ANION GAP 8 mmol/L (7-16); BUN 20 mg/dL (7-18); CALCIUM 8.3 mg/dL (8.5-10.1); CHLORIDE 107 mmol/L (98-107); CHOLESTEROL 198 mg/dL (<200); CO2 30 mmol/L (21-32); CREATININE 0.8 mg/dL (0.6-1.0); GLUCOSE 101 mg/dL (74-106); HDL CHOLESTEROL 94 mg/dL (>40); LDL CHOLESTEROL 88 mg/dL (<100); SODIUM 145 mmol/L (136-145); TC:HDL 2.1 Ratio (Not establshd); TRIGLYCERIDE 81 mg/dL (<150); VLDL 16 mg/dL (<40)
[2020-12-17 04:29] VITALS: BP 104/70
[2020-12-17 04:38] LABS: POTASSIUM 3.6 mmol/L (3.5-5.1)
[2020-12-17 04:39] LABS: SERUM ASSESSMENT Clear
[2020-12-17 07:11] VITALS: BP 118/64
--- NOTE | 2020-12-17 07:11 | EKG ---
[address] [address] ELECTROCARDIOGRAM REPORT Name: KO HARRISON Room #: 208-P ADM IN M.R.#: [id number] Admission: 12/16/20 Attend Phys: Wallace Mcdonnell MD Discharge: Date of : 37 Report #: [id number] [facility] ED Test Date: 2020-12-16 Test Time: 19:20:29 Pat Name: KO HARRISON Department: Room: 208 Gender: F [employer] Wafer Inspector: reggie : [id number] Requested By: Kris Alford Order Number: [id number] MD: Pranay Obrien Measurements Intervals [place] Rate: 53 P: 21 CO: 175 QRS: 26 QRSD: 92 T: 23 QT: 455 QTc: 428 Interpretive Statements Sinus rhythm Compared to ECG 01/30/2017 09:41:01 No significant changes Electronically Signed On 12-17-2020 7:11:36 CDT by Pranay Obrien [email or web address] <ELECTRONICALLY SIGNED> By: Pranay Obrien MD, [facility] 12/17/20 0711 19 1920 Pranay Obrien MD, FACC /EPI
[2020-12-17 11:09] VITALS: BP 106/72
--- NOTE | 2020-12-17 12:44 | NUR ---
Chart reveiwed and case discussed with the care team. Pt here for cva workup. PT/OT/Neuro evals in progress. PT and OT indicate pt is at baseline and they are not recommendation any HH/rehab at this time. She has a rwalker at home and lives with her spouse. Dtr/gdtr involved and very supportive. No cm interventions indicated at this time.
[2020-12-17] MEDS ORDERED: ELIQUIS5 MG PO (13:44)
[2020-12-17] MEDS ORDERED: ADULT LOW DOSE81 MG PO (13:44)
--- NOTE | 2020-12-17 14:10 | 2DMMODE ---
[facility] [place] [address] 2 D/M-MODE ECHOCARDIOGRAM Name: KO HARRISON Room #: 208-P ADM IN M.R.#: [id number] Admission: 12/16/20 Attend Phys: Wallace Mcdonnell MD Discharge: Date of : 37 Report #: [id number] THIS REPORT FOR: cc: Anselmo Estrada David J. DO Park, Jin S. MD ~ APPROVED REPORT Study performed: 12/17/2020 13:14:01 EXAM: Comprehensive 2D, Doppler, and color-flow Echocardiogram Patient Location: Bedside Room #: 208 Status: routine BSA: 1.65 HR: 67 bpm BP: 106/72 mmHg Rhythm: NSR Other Information Study Quality: Fair/no parasternal windows. Technically limited study due to body habitus. Indications CVA. Hx: multiple CVAs, PEs, PFO. 2D Dimensions RVDd: 27.18 mm IVSd: 10.18 (7-11mm) LVDd: 38.83 mm PWd: 7.90 (7-11mm) LVDs: 26.63 (25-40mm) Left Atrium: 36.96 (27-40mm) Aortic Root: 30.84 mm Volumes Left Atrial Volume (Systole) Single Plane 4CH: 42.67 mL Single Plane 2CH: 45.97 mL LA ESV Index: 29.00 mL/m2 Aortic Valve AoV Peak Balaji.: 1.37 m/s AO Peak Gr.: 7.51 mmHg LVOT Max P.43 mmHg [facility] [address] [address] 2 D/M-MODE ECHOCARDIOGRAM Name: KO HARRISON Nakia Room #: 208-P ADM IN .R.#: [id number] Admission: 12/16/20 Attend Phys: Wallace Mcdonnell MD Discharge: Date of : 37 Report #: [id number] LVOT Max V: 0.93 m/s Mitral Valve E/A Ratio: 0.7 MV Decel. Time: 253.12 ms MV E Max Balaji.: 0.64 m/s MV A Balaji.: 0.91 m/s MV PHT: 73.41 ms IVRT: 96.89 ms Tricuspid Valve RAP Estimate: 10.00 mmHg Left Ventricle The left ventricle is normal size. There is normal LV segmental wall motion. There is normal left ventricular wall thickness. Left ventricular systolic function is normal. LVEF is 55-60%. Mild diastolic dysfunction is present (impaired relaxation pattern). Right Ventricle The right ventricle is normal size. The right ventricular systolic function is normal. Atria The left atrium size is normal. The right atrium size is normal. Aortic Valve The aortic valve is not well visualized. No aortic regurgitation is present. There is no aortic valvular stenosis. Mitral Valve The mitral valve is normal in structure. There is no mitral valve regurgitation noted. No evidence of mitral valve stenosis. Tricuspid Valve The tricuspid valve is normal in structure. There is no tricuspid valve regurgitation noted. Unable to assess PA pressure. Pulmonic Valve Pulmonic valve is not well visualized. Great Vessels The aortic root is normal in size. Ascending aorta is not well visualized. The IVC is dilated. [facility] [address] [place] [address] 2 D/M-MODE ECHOCARDIOGRAM Name: KO HARRISON Room #: 208-P [facility] IN [facility]#: [id number] Admission: 12/16/20 Attend Phys: Wallace Mcdonnell MD Discharge: Date of : 37 Report #: [id number] Pericardium There is no pericardial effusion. <Conclusion> The left ventricle is normal size. There is normal left ventricular wall thickness. Left ventricular systolic function is normal. Mild diastolic dysfunction is present (impaired relaxation pattern). The right ventricle is normal size. The left atrium size is normal. The aortic valve is not well visualized. There is no mitral valve regurgitation noted. <ELECTRONICALLY SIGNED> By: Chris Arrington MD 12/17/20 1410 09 09 Chris Arrington MD /INF
[2020-12-17 15:09] VITALS: BP 115/58
--- NOTE | 2020-12-17 19:32 | NUR ---
PT IS AXOX4, PLEASANT. VSS, AFEBRILE, SR ON MONITOR. PT HAS BEEN STABLE ON FEET, WITH NO APPARENT RESIDUAL. NIH STROKE ASSESSMENT COMPLETED Q4H, SCORING 0 ON EACH ASSESSMENT. MRI THIS AM. RESULTS SHOW ACUTE R THALAMIC INFARCT. PT/OT CONSULTED. CASE MGMT CONSULTED. POC IS TO CONTINUE TO TO OBSERVE PT THROUGHOUT THE EVENING NIH SCALE. LOW FALL PRECAUTIONS IN PLACE. POSS D/C IN THE AM PER DR ABAD. NO CONCERNS AT THIS TIME.
[2020-12-17 23:06] LABS: GLYCOHEMOGLOBIN (HGB A1C) 5.5 % (4.8-5.6)
[2020-12-18 04:31] VITALS: BP 120/62
--- NOTE | 2020-12-18 05:01 | NUR ---
pt resting quietly in room, no c/o pain, vss, plans to go home in am, will con't to monitor per ppoc.
[2020-12-18 08:51] VITALS: BP 122/76
[2020-12-18 11:28] VITALS: BP 122/76
[2020-12-18] MEDS ORDERED: CEPHALEXIN500 MG PO (11:38)
--- NOTE | 2020-12-18 13:23 | NUR ---
PT IS AXOX4, PLEASANT; DENIES PAIN. VSS, AFEBRILE, SR ON MONITOR. DR ABAD CONSULTED. PT TO D/C THIS MORNING WITH DTR. PHARMACY ADDED TO PT D/C ORDERS. T D/C HOME WITH DTR. DISCHARGE EDUCATION CONDUCTED WITH PT AND PT DTR AT THE BEDSIDE. FOLLOW UP APPT ALSO DISCUSSED. PT AND DTR COMMUNICATED UNDERSTANDING. NO CONCERNS AT THIS TIME.
--- NOTE | 2020-12-19 19:42 | HC ---
[facility] [place] [address] CONSULTATION Name: KO HARRISON Room #: 208-P [facility] IN ..#: [id number] Admission: 12/16/20 Attend Phys: Wallace Mcdonnell MD Discharge: 12/18/20 Date of : 37 Report #: [id number] THIS REPORT FOR: cc: Anselmo Estrada David J. DO Khosla, Parveen K. MD ~ DATE OF SERVICE: 12/17/2020 HISTORY OF PRESENT ILLNESS: This is an 85-year-old female patient who was evaluated by me for the numbness on the right side. This has fluctuated. She is on Xarelto. She apparently missed 1 dose of Xarelto. This patient has a known history of PFO. Cardiology evaluated this patient and apparently it is a small PFO. This patient also has a history of pulmonary embolus twice and she said during one of those episodes she almost . She is on Xarelto for that. REVIEW OF SYSTEMS: A 14-point review of system was carried out. Her numbness has disappeared. She was not complaining of any new eye, ENT, cardiac, respiratory, GI, , musculoskeletal, constitutional, dermatological, hematological, psychiatric, throat, allergic symptom associated with present symptomatology. Also positive for foot surgery, steroid injection, hysterectomy, appendectomy, hemorrhoidectomy, tonsillectomy, cataract surgery, venous ablation, colonoscopy, prior history of strokes, prior history of PE and hypertension and PFO. PAST MEDICAL HISTORY: Positive for stroke, although history is poorly defined. FAMILY HISTORY: Unremarkable. SOCIAL HISTORY: Unremarkable. She does not abuse alcohol. PHYSICAL EXAMINATION: She is alert, responsive to me. Her speech looks unremarkable. She thinks her memory and fund of knowledge is at her baseline. In fact, even her numbness has disappeared. Cranial nerve examination 2-12 is unremarkable. Neuromuscular examination also appears unremarkable. There is no meningeal sign. There is no cerebellar sign. There is no carotid bruit in this patient. Cardiorespiratory examinations appear unremarkable. There is no edema, cyanosis or jaundice. There is no atrial fibrillation noticed. IMPRESSION AND PLAN: 1. Acute cerebrovascular accident. That will correlate with the patient's numbness on the left side. 2. She is on Xarelto and I suggested a combination of antiplatelet and anticoagulation. She is not very enthusiastic to do it because she says she bleeds a lot. I noticed her Xarelto is going to be changed to Eliquis. [facility] [address] [place] [address] CONSULTATION Name: KO HARRISON Room #: 208-P [facility]#: [id number] Admission: 12/16/20 Attend Phys: Wallace Mcdonnell MD Discharge: 12/18/20 Date of : 37 Report #: [id number] 3. She has a patent foramen ovale. From Cardiology note, it looks like it is a small patent foramen ovale. Case can be made to close it since she had a stroke with a completely normal intracranial and extracranial vasculature and she will be predisposed to stroke even with recurrent pulmonary embolus. Cardiology is going to address that question and I will defer to them. 4. Intracranial and extracranial vasculature is pretty clean and I do not believe any intervention is needed. In fact, I do not think I have any other recommendations in this patient from neurological perspective. I did add a sed rate and vitamin B12 because of some memory issues that can be checked. Otherwise, I think the management is going to be as per Cardiology at this stage. I will sign off. Please call if there is any further followup needed. <ELECTRONICALLY SIGNED> By: Antione Parrish MD 12/19/20 1942 1706 1500 Antione Parrish MD /nt
== END 2020-12-18 12:00 | disposition home or self-care (01) | DRG 65 ==
LOC: ER 15:25 → 2N 20:35 → EROBS 20:35 → 2N 22:47
PROVIDERS: Emergency Medicine; Nurse Practitioner Family; ADMIT Hospitalist; ATTEND Hospitalist
DX: I63.89 Other cerebral infarction (principal); N30.00 Acute cystitis without hematuria; Q21.1 Atrial septal defect; I10 Essential (primary) hypertension; E03.9 Hypothyroidism, unspecified; R29.702 NIHSS score 2; Z86.73 Personal history of transient ischemic attack (TIA), and cerebral infarction without residual deficits; Z86.711 Personal history of pulmonary embolism; Z90.710 Acquired absence of both cervix and uterus; Z90.49 Acquired absence of other specified parts of digestive tract; Z79.01 Long term (current) use of anticoagulants; Z79.899 Other long term (current) drug therapy; Z88.8 Allergy status to other drugs, medicaments and biological substances
CPT/HCPCS: 10081

== ENCOUNTER → 2021-01-25 | Outpatient (CLI) | payer OTHER ==
[~2021-01-25] VITALS: Ht 157.5 cm; Wt 66.3 kg
[~2021-01-25] MED LIST changes: +ADULT LOW DOSE81 MG PO; +ELIQUIS5 MG PO
[2021-01-25 08:54] VITALS: BP 103/68
--- NOTE | 2021-01-25 09:03 | NUR ---
Pain Clinic Assessment: 1. History of Osteoarthritis: HANDS HIPS History of Rheumatoid Arthritis: Not Applicable 2. Height: 5 ft. 2 in. 157.5 cm. Weight: 146.2 lb. oz. 66.316 kg. Patient's BMI: 26.7 3. Vital Signs: BP: 103/68 Pulse: 61 Resp: 16 Temp: 02 Sat: 98 ECG Mon: 4. Pain Intensity: 4 5. Fall Risk: Dizziness: N Needs help standing or walking: N Fallen in the last 3 months: N Fall risk comments: 6. Patient on Blood Thinner: eliquis 7. History of Hypertension: Y 8. Opioid Therapy greater than 6 weeks: Y Opiate Contract Signed: 9. Risk Assessment Tool Provided: LOW RISK 06/06 10. Functional Assessment Tool: 11. Recreational Drug Use: Never Drug Type: Tobacco Use: Never Smoker Tobacco Type: Amount or Packs/day: How Many Years: Alcohol Use: No Frequency: Quant:
--- NOTE | 2021-01-26 10:47 | HPC ---
[facility] [place] [address] PAIN MANAGEMENT CONSULTATION Name: KO HARRISON Room #: REG NIA Bri#: [id number] Admission: 01/25/21 Attend Phys: Raul Faustin DO Discharge: Date of : 37 Report #: [id number] THIS REPORT FOR: cc: Anselmo Estrada,Raul Lowe DO ~ cc: Anselmo Estrada DO DATE OF SERVICE: 01/25/2021 CHIEF COMPLAINT: Bilateral SI joint pain. HISTORY OF PRESENT ILLNESS: As you know, the patient is a very pleasant 85-year-old female returning in followup to our [facility] office to undergo bilateral SI joint injections under fluoroscopic guidance. The patient reports the previous injections gave significant pain improvement, 90% over 6 weeks. The patient has noted a change in her medical condition and she has been recently hospitalized for a stroke. There have been changes in her medication management. She returns today in followup visit requesting bilateral SI joint injections under fluoroscopic guidance to address 4/10 pain. She denies injury or trauma that may have led to symptom reoccurrence. ALLERGIES: MELOXICAM, CELECOXIB. CURRENT MEDICATIONS: Tramadol 50 mg q.6h., hydrochlorothiazide 25 mg per day, Eliquis 5 mg b.i.d., aspirin 81 mg per day, hydrochlorothiazide 25 mg per day, multivitamin 1 tab per day, levothyroxine 75 mcg per day. SOCIAL HISTORY: The patient denies tobacco, alcohol or IV or illicit drug use. She is retired, retired years ago, unaccompanied today. IMAGING: No new imaging available. PQRS: The patient has known arthritic changes of the lumbar spine, bilateral SI joints, bilateral hips and knees. No rheumatoid arthritis. She is not a fall risk, has not had a fall in last 3 months. She is on blood thinners in the form of Eliquis and continues the medication to date. She is treated for hypertension. She is on chronic opioids, has a low opiate addiction potential based on assessment tool. Pain impact is 21/70, mild to moderate interference of daily activities secondary to pain. PHYSICAL EXAMINATION: VITAL SIGNS: Blood pressure 103/68, pulse 61, respiratory rate 16 and unlabored. The patient 98% on room air. Height 5 feet 2 inches tall, weight 146.2 pounds, BMI calculated 26.7. GENERAL: Well-developed, well-nourished, well-hydrated 85-year-old female appearing stated age, pain is rated today at 4/10. [address] [address] PAIN MANAGEMENT CONSULTATION Name: KO HARRISON Room #: REG CL Suze.#: [id number] Admission: 01/25/21 Attend Phys: Raul Faustin DO Discharge: Date of : 37 Report #: [id number] HEENT: Normocephalic, atraumatic. Pupils equal, round and responsive. The patient is wearing a mask in compliance with COVID-19 regulations. EXTREMITIES: Show no clubbing, no cyanosis. MUSCULOSKELETAL: Lower extremity strength is symmetrical. Muscle bulk and tone is symmetrical, but deconditioned. Seated straight leg raising negative. Supine straight leg raising negative. Thigh thrust maneuver is bilaterally positive. Fabere's test is positive for bilateral SI joint pain. Modified Gaenslen's positive for axial low back pain. ASSESSMENT: 1. Bilateral sacroiliac joint pain. 2. Bilateral sacroiliac joint osteoarthritis. 3. Chronic lumbar facet arthropathy. 4. Chronic low back pain. 5. A complicated medication management utilizing scheduled medications. 6. Chronic intractable pain. PLAN: 1. The patient returns today in followup visit to undergo bilateral SI joint injections under fluoroscopic guidance. She reports 90% improvement in overall pain with the previous injection lasting for up to 6 weeks. Unfortunately, her symptoms have begun to return. She returns today for the next in the series of injections. She has been advised risks and benefits of the procedure, states understood and wished to proceed. 2. The patient was provided refill prescription of tramadol 50 mg dose 2 tabs 3 times a day. She was given #180 tablets to release today, 4 weeks from today, 8 weeks from today, 3 months' worth of medication. All prescriptions sent via e-scribe to local pharmacy. 4. We will see the patient back in followup visit in 3 months for medication management. She can return earlier if she wishes to undergo bilateral SI joint injections. PROCEDURE NOTE: DESCRIPTION OF PROCEDURE: Bilateral SI joint injections under fluoroscopic guidance. After obtaining written consent, the patient was taken back to fluoroscopy suite, placed in prone position with pillow under abdomen to decrease the lumbar lordosis. Skin overlying the gluteal area was then prepped and draped in aseptic fashion using chlorhexidine. Fluoroscopic imaging was used to image the joints, both on the right and left side. Optimal position of the fluoroscope was noted once the joint spaces were first visualized. Two 22-gauge 3-1/2 inch spinal needles with bent tips were advanced towards the right and left sacroiliac joint under fluoroscopic guidance. [place] were advanced until reaching the inferior recess of the joints. [place] were then [address] [address] PAIN MANAGEMENT CONSULTATION Name: KO HARRISON Room #: REG [facility]#: [id number] Admission: 01/25/21 Attend Phys: Raul Faustin DO Discharge: Date of : 37 Report #: [id number] advanced into the joints, but not into the articular cartilage. After negative aspiration for heme, 1 mL of Omnipaque injected, demonstrating excellent right and left sacroiliac joint arthrograms. After negative aspiration for heme, 2 mL of a solution containing 1 mL 40 mg per mL, 40 mg total triamcinolone along with 1 mL of bupivacaine 0.5% injected in each side. [place] were retracted approximately fpc, flushed with 1 mL of 1% lidocaine and removed. Sterile bandage placed over injection site. No new motor deficits present in both lower extremities following procedure. The patient tolerated the procedure well, carefully escorted to recovery room in stable condition. No apparent complications. After meeting discharge criteria, the patient discharged home. <ELECTRONICALLY SIGNED> By: Raul Faustin DO 01/26/21 1047 0926 1323 Raul Faustin DO /nt
== END | disposition home or self-care (01) ==
LOC: PAIN 06:38
PROVIDERS: ATTEND Anesthesiology Pain Medicine
DX: M53.3 Sacrococcygeal disorders, not elsewhere classified (principal); M47.896 Other spondylosis, lumbar region; G89.29 Other chronic pain; M54.5 Low back pain; I10 Essential (primary) hypertension; M19.90 Unspecified osteoarthritis, unspecified site; Z98.890 Other specified postprocedural states; Z79.899 Other long term (current) drug therapy; Z88.8 Allergy status to other drugs, medicaments and biological substances; Z87.891 Personal history of nicotine dependence

== ENCOUNTER → 2021-03-18 | Outpatient (CLI) | payer OTHER | LOC: SJCVC 10:52 | PROVIDERS: ATTEND Internal Medicine Cardiovascular Disease | DX: I63.9 Cerebral infarction, unspecified (principal); I10 Essential (primary) hypertension; R60.9 Edema, unspecified; M19.90 Unspecified osteoarthritis, unspecified site; E03.9 Hypothyroidism, unspecified; E78.5 Hyperlipidemia, unspecified; I82.403 Acute embolism and thrombosis of unspecified deep veins of lower extremity, bilateral; Z79.82 Long term (current) use of aspirin; Z79.899 Other long term (current) drug therapy; Z88.8 Allergy status to other drugs, medicaments and biological substances ==

== ENCOUNTER → 2021-03-22 | Outpatient (CLI) | payer OTHER ==
[~2021-03-22] VITALS: Ht 157.5 cm; Wt 65.8 kg
[2021-03-22 09:12] VITALS: BP 100/62
--- NOTE | 2021-03-22 09:19 | NUR ---
Pain Clinic Assessment: 1. History of Osteoarthritis: HANDS HIPS History of Rheumatoid Arthritis: Not Applicable 2. Height: 5 ft. 2 in. 157.5 cm. Weight: 145.0 lb. oz. 65.772 kg. Patient's BMI: 26.5 3. Vital Signs: BP: 100/62 Pulse: 64 Resp: 16 Temp: 02 Sat: 97 ECG Mon: 4. Pain Intensity: 2 5. Fall Risk: Dizziness: N Needs help standing or walking: N Fallen in the last 3 months: N Fall risk comments: 6. Patient on Blood Thinner: eliquis 7. History of Hypertension: Y 8. Opioid Therapy greater than 6 weeks: Y Opiate Contract Signed: 9. Risk Assessment Tool Provided: LOW RISK 06/06 10. Functional Assessment Tool: 11. Recreational Drug Use: Never Drug Type: Tobacco Use: Never Smoker Tobacco Type: Amount or Packs/day: How Many Years: Alcohol Use: No Frequency: Quant:
--- NOTE | 2021-03-23 08:05 | HPC ---
[address] [address] PAIN MANAGEMENT CONSULTATION Name: KO HARRISON Room #: REG NIA Miguel#: [id number] Admission: 03/22/21 Attend Phys: Raul Faustin DO Discharge: Date of : 37 Report #: [id number] THIS REPORT FOR: cc: Anselmo Estrada,Raul Lowe DO ~ cc: Anselmo Estrada DO DATE OF SERVICE: 03/22/2021 CHIEF COMPLAINT: Bilateral SI joint pain. HISTORY OF PRESENT ILLNESS: As you know, the patient is a very pleasant 85-year-old female who returns in followup visit with recurrence of bilateral SI joint pain. The patient reports previous SI joint injections provided at our last visit improved symptoms by 90% for over 6-7 weeks. Unfortunately, symptoms did reoccur. She returns today in followup visit requesting to undergo a bilateral SI joint injection under fluoroscopic guidance to address the 2/10 pain she is experiencing at present. The patient states no injury or trauma that led to symptom reoccurrence. ALLERGIES: AMOXICILLIN AND CELECOXIB. CURRENT MEDICATIONS: Tramadol, hydrochlorothiazide, Eliquis, aspirin, multivitamin, levothyroxine. SOCIAL HISTORY: The patient denies tobacco, alcohol or IV illicit drug use. She is retired, retired years ago, unaccompanied today. IMAGING: No new imaging available. PQRS: The patient has known arthritic changes of the lumbar spine, bilateral SI joints, bilateral hips and knees. No rheumatoid arthritis. She is placing current pain score at 2/10. She is not a fall risk, has not had a fall in the last 3 months. She is on blood thinners in the form of Eliquis and has continued the medication today. She is treated for her hypertension. She is on chronic opioids, has a low opioid addiction potential based on assessment tool. Pain impact is 21/70, mild interference of daily activities secondary to pain. PHYSICAL EXAMINATION: VITAL SIGNS: Blood pressure 100/62, pulse 64, respiratory rate 16 and unlabored. The patient is 97% on room air. Height 5 feet 2 inches tall, weight 145 pounds, BMI calculated 26.5. GENERAL: Well-developed, well-nourished, well-hydrated 85-year-old female appearing stated age, pain is rated today 2/10. HEENT: Normocephalic, atraumatic. She is wearing a mask in compliance with COVID-19 regulations in hospital policies. [address] [address] PAIN MANAGEMENT CONSULTATION Name: KO HARRISON Room #: REG [facility]#: [id number] Admission: 03/22/21 Attend Phys: Raul Faustin DO Discharge: Date of : 37 Report #: [id number] EXTREMITIES: Show no clubbing, no cyanosis. No appreciable edema. MUSCULOSKELETAL: Lower extremity strength is symmetrical again today. Muscle bulk and tone is symmetrical, but deconditioned as noted on previous evaluations. Thigh thrust maneuver is positive bilaterally. Fabere's test is positive bilaterally. Pranay's test is positive bilaterally. Modified Gaenslen is positive for axial low back pain and supine straight leg raising is negative. ASSESSMENT: 1. Bilateral sacroiliac joint pain. 2. Bilateral sacroiliac joint osteoarthritis. 3. Chronic lumbar facet arthropathy. 4. Chronic low back pain. 5. Complicated medication management utilizing scheduled medications. 6. Chronic intractable pain. PLAN: 1. The patient returns today in followup visit requesting to undergo bilateral SI joint injections under fluoroscopic guidance. She reports again 90% improvement in overall pain lasting for at least 6-7 weeks with recurrence of symptoms without inciting injury or trauma. She returns today in followup visit reporting pain score 2/10 for which she wants to address with bilateral SI joint injections to address the recurrent symptoms. The patient has had no changes in medication management that would preclude the patient from undergoing the procedure today. She has been advised the risks and benefits, states understood and wished to proceed. 2. The patient was provided a refill prescription of tramadol for which she takes 50 mg 2 tabs 3 times a day. She was given 180 tablets with releases of today and 4 weeks from today, 2 months' worth of medication. All prescriptions sent via e-scribe to local pharmacy. 3. We will see the patient back in followup visit on an as needed basis for the next in the series of bilateral SI joint injections if necessary and for medication refills. PROCEDURE NOTE DESCRIPTION OF PROCEDURE: Bilateral SI joint injections under fluoroscopic guidance. After obtaining written consent, the patient was taken back to the fluoroscopy suite, placed in prone position with pillow under abdomen to decrease lumbar lordosis. Skin overlying the gluteal sacral area was then prepped and draped in aseptic fashion using chlorhexidine. Fluoroscopic imaging was used to identify the SI joints bilaterally. Optimal position of the fluoroscope was noted once the joint spaces were first visualized. [address] [address] PAIN MANAGEMENT CONSULTATION Name: KO HARRISON Room #: REG NIA Arteaga#: [id number] Admission: 03/22/21 Attend Phys: Raul Faustin DO Discharge: Date of : 37 Report #: [id number] Two 22-gauge, 3-1/2-inch spinal needles with bent tips were advanced towards the sacroiliac joints, both on the left and right side. [place] were advanced until reaching the inferior recess of the joints. [place] were then advanced into the joints, but not into the articular cartilage. After negative aspiration for heme, 0.5 mL of Omnipaque injected on the right side, demonstrating excellent right sacroiliac joint arthrograms. 0.75 mL of Omnipaque was injected in the left, demonstrating an excellent left sacroiliac joint arthrogram. After negative aspiration for heme, 2.5 mL of a solution containing 1 mL, 40 mg per mL, 40 mg total triamcinolone along with 1.5 mL of bupivacaine 0.5% was injected at each side. [place] were retracted longterm, flushed with 1 mL of 1% lidocaine and then removed. Sterile bandage placed over injection site. There were no new motor deficits present in the lower extremity following the procedure. The patient tolerated the procedure well. Carefully escorted to recovery room in stable condition. After meeting our discharge criteria, the patient was discharged home. <ELECTRONICALLY SIGNED> By: Raul Faustin DO 03/23/21 0805 1400 1618 Raul Faustin DO /nt
== END | disposition home or self-care (01) ==
LOC: PAIN 06:58
PROVIDERS: ATTEND Anesthesiology Pain Medicine
DX: M53.3 Sacrococcygeal disorders, not elsewhere classified (principal); M46.1 Sacroiliitis, not elsewhere classified; M47.896 Other spondylosis, lumbar region; G89.29 Other chronic pain; M54.59 Other low back pain; I10 Essential (primary) hypertension; M19.90 Unspecified osteoarthritis, unspecified site; Z98.890 Other specified postprocedural states; Z79.899 Other long term (current) drug therapy; Z79.891 Long term (current) use of opiate analgesic; Z79.01 Long term (current) use of anticoagulants; Z88.8 Allergy status to other drugs, medicaments and biological substances

== ENCOUNTER 2021-04-15 11:07 | Inpatient (IN) | payer OTHER ==
[~2021-04-15] VITALS: Ht 157.5 cm; Wt 63.0 kg
--- NOTE | ~2021-04-15 | EMS ---
[address] [address] EMS Patient Care Report Name: KO HARRISON Room #: 434-P ADM IN M.R.#: [id number] Admission: 04/15/21 Attend Phys: Ariel Sharma, Discharge: Date of : 37 Report #: [id number] THIS REPORT FOR: //name// Report Transmitted: 04/18/2021 11:58 EMS Care Summary [place], [place]/[facility] Incident [id number] @ 04/15/2021 09:58 Incident Location [address] [place] [address] Patient KO HARRISON Female, 85 Years 1935 Patient Address [address] [place] [address] Patient History Stroke/CVA, Patient Allergies No known allergies, Patient Medications Eliquis, Hydrochlorothiazide (Hctz), Tramadol, Viactiv Calcium Plus D, Chief Complaint fall Disposition Transported No Lights/[place] Dispatch Reason Falls Transported To [facility] Narrative 533 was dispatched on a fall. upon arrival we found our patient alert and oriented laying in bed. she stated she fell the night before. she said she tripped over the threshold of the door. and now was complaining of hip pain that worsened over night. no deformity noted. she stated she had two strokes [address] [address] EMS Patient Care Report Name: KO HARRISON Room #: 434-P [facility]#: [id number] Admission: 04/15/21 Attend Phys: Ariel Sharma, Discharge: Date of : 37 Report #: [id number] one was 6 years ago one was december 16 but she had no deficits. we loaded her on our cot via stand and sit and secured all straps and proceeded to the ambulance. enroute vitals were monitored and at the hospital care was transferred belongings were left in room patient was transferred via sheet lift. Initial Vitals @10:38P: 82,R: 16,BP: 122/89,Pain: 6/10,GCS: 15,CO: 1,SpO2: 92,Revised Trauma: 12, @10:59P: 68,R: 16,BP: 118/73,Pain: 6/10,GCS: 15,SpO2: 96,Revised Trauma: 12, Assessments @10:20MENTAL:Event Oriented,Person Oriented,Time Oriented,Place Oriented,SKIN:HEENT:Head/Face: No Abnormalities,Eyes: No Abnormalities,Neck/Airway: No Abnormalities,LUNG SOUNDS:General: No Abnormalities,Left Upper: No Abnormalities,Right Upper: No Abnormalities,Left Lower: No Abnormalities,Right Lower: No Abnormalities,ABDOMEN:General: No Abnormalities,Left Upper: No Abnormalities,Right Upper: No Abnormalities,Left Lower: No Abnormalities,Right Lower: No Abnormalities,PELVIS//GI:No Abnormalities,EXTREMITIES:Left Arm: No Abnormalities,Right Arm: No Abnormalities,PULSE:NEURO:No Abnormalities, Impression Extremity Pain Procedures @10:18 ALS Assessment Response: UnchangedSucceeded @10:19 BLS Assessment Response: Unchanged Timeline 09:55,Call Received 09:55,Dispatch Notified 09:58,Dispatched 09:59,En Route 10:15,On Scene 10:17,At Patient 10:18,ALS Assessment,Response: UnchangedSucceeded, 10:19,BLS Assessment,Response: Unchanged 10:38,BP: 122/89 M,PULSE: 82,RR: 16 R,SPO2: 92 Ox,ETCO2: ,BG: ,PAIN: 6,GCS: 15, 10:40,Depart Scene 10:55,At Destination 10:59,BP: 118/73 M,PULSE: 68,RR: 16 R,SPO2: 96 Ox,ETCO2: ,BG: ,PAIN: 6,GCS: 15, 11:10,Call Closed Disclaimer [address] [address] EMS Patient Care Report Name: KO HARRISON Room #: 434-P ADM IN .R.#: [id number] Admission: 04/15/21 Attend Phys: Ariel Sharma, Discharge: Date of : 37 Report #: [id number] v1.1 Copyright 2020 [employer] This EMS Care Summary contains data elements from the applicable legal record (which may be displayed differently). It is designed to provide pertinent information for the following purposes: continuity of care, clinical quality, and state data reporting. The complete legal record is available to ED staff and administrators of the receiving hospital in [facility]'s Patient Tracker. All data is provided "as is."
[2021-04-15 11:07] VITALS: BP 127/62
[2021-04-15 11:57] LABS: CALCIUM 8.5 mg/dL (8.5-10.1); CREATININE 0.7 mg/dL (0.6-1.0); POTASSIUM 3.8 mmol/L (3.5-5.1)
[2021-04-15 13:00] LABS: ABSOLUTE NEUTROPHILS 7.7 thou/uL (1.4-8.2); BASOPHILS 0.8 % (0.0-2.0); EOSINOPHILS 1.5 % (0.0-3.0); HEMATOCRIT 39.2 % (37.0-47.0); LYMPHOCYTES 15.6 % (24.0-44.0); MCH 29.7 pg (26.0-34.0); MCHC 33.3 g/dL (28.0-37.0); MCV 89.4 fL (80.0-100.0); MONOCYTES 7.7 % (1.0-8.0); PLATELET COUNT 294 thou/uL (150-400); POLYS 74.4 % (36.0-66.0); RBC 4.38 mil/uL (4.20-5.00); RDW 13.5 % (10.5-14.5); WBC 10.4 thou/uL (4.0-11.0)
[2021-04-15 13:15] LABS: APTT 30.5 Seconds (24.5-32.8); INR 1.01
[2021-04-15 15:50] LABS: URINE BILIRUBIN NEGATIVE (Negative); URINE BLOOD NEGATIVE (Negative); URINE CLARITY SL CLOUDY; URINE COLOR YELLOW; URINE GLUCOSE-RANDOM* NEGATIVE (Negative); URINE KETONES NEGATIVE (Negative); URINE LEUKOCYTES-REFLEX NEGATIVE (Negative); URINE NITRITE-REFLEX NEGATIVE (Negative); URINE PROTEIN (DIPSTICK) NEGATIVE (Negative); URINE UROBILINOGEN 0.2 E.U./dl (0.2-1.0)
[2021-04-15 17:03] VITALS: BP 115/62
[2021-04-15 17:35] VITALS: BP 132/63
[2021-04-15 17:50] VITALS: BP 129/77
--- NOTE | 2021-04-15 18:20 | NUR ---
Pt transferred to hospital for special surgery from ED. Pt c/o when being transferred to unit bed. Kemp catheter in place. IVF infusing. Admission education, and admission history completed. Pt will undergo surgery tomorrow. Will give report to noc RN to finish the rest of the admission. Call light within reach. Fall precautions in place.
[2021-04-15 21:48] VITALS: BP 115/72
[2021-04-15 23:46] VITALS: BP 135/82
[2021-04-16 02:41] LABS: HEMATOCRIT 39.1 % (37.0-47.0); HEMOGLOBIN 12.8 gm/dL (12.0-15.0); MCH 29.5 pg (26.0-34.0); MCHC 32.7 g/dL (28.0-37.0); MCV 90.4 fL (80.0-100.0); RBC 4.32 mil/uL (4.20-5.00); RDW 13.3 % (10.5-14.5); WBC 9.6 thou/uL (4.0-11.0)
[2021-04-16 02:48] LABS: CREATININE 0.6 mg/dL (0.6-1.0); POTASSIUM 3.5 mmol/L (3.5-5.1)
[2021-04-16 03:32] VITALS: BP 120/70
--- NOTE | 2021-04-16 04:26 | NUR ---
UPON SHIFT REPORT, PT SLEEPING BUT AROUSABLE TO VERBAL AND TACTILE STIMULATION. UPON SHIFT ASSESSMENT, PT AOX4, HARD OF HEARING. PT REPORTS 9/10 RIGHT HIP PAIN. PT RECEIVING PRN PO TRAMADOL Q6HR WITH PRN PO APAP Q6HR AVAILABLE. PT DENIES SOB WHILE ON ROOM AIR. PT TOLERATING PO INTAKE OF FLUIDS WITHOUT ISSUE, NPO AT MIDNIGHT. PT WITHOUT NAUSEA OR EMESIS. PT VOIDING PER BR[facility]FORD CATHETER, PATENT, SECUREMENT DEVICE IN PLACE. PT RESTING IN BED THROUGHOUT SHIFT, FREQUENT REPOSITIONING ENCOURAGED. PT REFUSING REPOSITIONING ASSISTANCE DUE TO COMFORT PREFERENCES. GENERALIZED WEAKNESS NOTED. PITTING +1 EDEMA NOTED TO BLE. SENSATION INTACT, CAPILLARY REFILL LESS THAN 3SEC, PERIPHERAL PULSES PALPABLE IN ALL EXTREMITIES. PT ENCOURAGED TO NOTIFY STAFF FOR ALL NEEDS, CALL LIGHT WITHIN REACH, BED ALARM ON, BED LOCKED IN LOWEST POSITION, FREQUENT MONITORING WILL CONTINUE.
--- NOTE | 2021-04-16 07:04 | EKG ---
[address] [place] [address] ELECTROCARDIOGRAM REPORT Name: KO HARRISON Room #: 434-P ADM IN M.R.#: [id number] Admission: 04/15/21 Attend Phys: Ariel Sharma, Discharge: Date of : 37 Report #: [id number] [facility] ED Test Date: 2021-04-15 Test Time: 11:14:29 Pat Name: KO HARRISON Department: Room: 434 Gender: F Wire Splicer: MPARK : 1935 Requested By: Abhishek Armstrong Order Number: [id number] MD: Pranay Obrien Measurements Intervals [place] Rate: 70 P: 21 WV: 162 QRS: 24 QRSD: 94 T: 22 QT: 388 QTc: 419 Interpretive Statements Sinus rhythm Compared to ECG 12/16/2020 19:20:29 No significant changes Electronically Signed On 04-16-2021 7:04:24 [employer] SALES REPRESENTATIVE by Pranay Obrien [email or web address] <ELECTRONICALLY SIGNED> By: Pranay Obrien MD, [facility] 04/16/21 0704 [id number] 1114 Pranay Obrien MD, FACC /EPI
[2021-04-16 08:36] VITALS: BP 126/76
[2021-04-16 11:15] VITALS: BP 109/60
[2021-04-16 12:00] VITALS: BP 109/60
--- NOTE | 2021-04-16 13:51 | O ---
[facility] [place] [address] OPERATIVE REPORT Name: KO HARRISON Room #: 434-P [facility] IN M.R.#: [id number] Admission: 04/15/21 Attend Phys: Ariel Sharma, Discharge: Date of : 37 Report #: [id number] THIS REPORT FOR: cc: Anselmo Estrada David J. DO McCabe, Michael P. MD ~ DATE OF SERVICE: 04/16/2021 SERVICE: Orthopedics. FACILITY: [place]. SURGEON: Hansel Smalls MD [employer] FAC[employer]Y: [place]. PREOPERATIVE DIAGNOSIS: Valgus impacted right femoral neck fracture, status post fall. POSTOPERATIVE DIAGNOSIS: Valgus impacted right femoral neck fracture, status post fall. PROCEDURE: Closed reduction and percutaneous pinning, right femoral neck fracture. COMPLICATIONS: None. DRAINS: None. SPECIMENS: None. ANESTHESIA: General. FINDINGS: Synthes 6.5 cannulated screws. HISTORY: The patient is an 85-year-old female who sustained a fall resulting in right femoral neck fracture. She was admitted to [facility] where she was indicated for surgical treatment. Risks, benefits, alternatives and indications for the surgery were discussed with her in detail. She gave full informed consent. Risks include but not limited to pain, bleeding, infection, malunion, nonunion, injury to nerves or blood vessels, persistent pain despite surgical intervention, need for further surgery including conversion to arthroplasty as well as complications related to anesthesia. Despite the risks, she wished to proceed. DESCRIPTION OF PROCEDURE: After right lower extremity was correctly identified [facility] [address] [place] [address] OPERATIVE REPORT Name: KO HARRISON Room #: 434-P [facility] IN M.R.#: [id number] Admission: 04/15/21 Attend Phys: Ariel Sharma, Discharge: Date of : 37 Report #: [id number] in the preoperative holding area as the operative extremity, the patient was taken to the operating room where general anesthesia was induced without complication. She was padded appropriately. Prophylactic antibiotics were administered after proper time. C-arm was used to confirm that it was a valgus impacted fracture after transferring to the operating table and then the right leg was prepped and draped in standard sterile fashion. Timeout procedure performed. Using C-arm fluoroscopy on multiple planes of x-ray, we proceeded with internal fixation. A 1-inch incision was made based over the lateral aspect of the femur. Dissection was taken down to the lateral cortex. The first pin was placed in the inferior position with the purpose of the inverted triangle, configuration of the repair construct, placed a total of 3 pins in a divergent fashion, filling the femoral neck and then checked on multiple planes of x-ray with the guide pin position and then overdrilled the lateral cortex. After this was completed and measurements had been made, screws were advanced, placed the inferior screw followed by more proximal screws. After this, I felt that the inferior screw could stand to be 5 mm longer because the purchase was not superior and there was room for additional screw length, so this was switched to a screw 5 mm longer, total lengths were 85, 75 and 85. I then placed the final screw and had better length in terms of the fit for the proximal femur, but the screw purchase still was not as good as I desired and so I made a decision to place a fourth screw for the added strength of the repair construct and placed it in the inferior position more anteriorly and achieved the satisfactory fixation utilizing a 32 mm partial threaded screw as the other 3 had been 16 mm partial thread which were necessary to compress the fracture and after the fracture was compressed, a 32 mm screw was placed for stability purposes. Good fixation was achieved. The final x-rays were taken. The wound was thoroughly irrigated. The deep layer was closed with 0 Vicryl and then the skin was closed with 2-0 Vicryl followed by skin marcos. She will be weightbearing as tolerated. No complications. All counts were recorded as correct. <ELECTRONICALLY SIGNED> By: Hansel Smalls MD 04/16/21 1351 0855 0914 Hansel Smalls MD /madison
[2021-04-16 15:25] VITALS: BP 109/65
--- NOTE | 2021-04-16 19:32 | NUR ---
PATIENT BACK TO UNIT FROM OR AT 1015. A/O X4. TOLERATED DIET. OFFERED 2L O2. VSS WILL KEEP MONITOR.
[2021-04-16 19:53] VITALS: BP 103/72
--- NOTE | 2021-04-17 03:31 | NUR ---
ASSUMED PT CARE AT 1900.PT C/O R HIP PAIN,MANAGED WITH MED.PT REPOSITIONED WHILE IN BED.DRSG TO HER R HIP C/D/I.ICE PACK PROVIDED.PT STILL ON 2L/NC.[facility] CATH TO DD.GOOD URINE OUTPUT NOTED.PT ENCOURAGED TO USE HER CALL LIGHT FOR ASSISTNACE.CALL LIGHT WITHIN REACH.
[2021-04-17 05:23] LABS: HEMATOCRIT 33.5 % (37.0-47.0); HEMOGLOBIN 11.1 gm/dL (12.0-15.0); MCH 29.8 pg (26.0-34.0); MCHC 33.1 g/dL (28.0-37.0); MCV 90.2 fL (80.0-100.0); RBC 3.72 mil/uL (4.20-5.00); RDW 13.6 % (10.5-14.5)
[2021-04-17 07:29] VITALS: BP 107/69
--- NOTE | 2021-04-17 09:12 | NUR ---
Assumed care of pt at 0700. Pt a&ox4. States pain is controlled. Dressing c/d/i. IVF infusing. Up x1 assist to bedside commode. Pt awaiting to work with physical therapy. Call light within reach. Fall precautions in place. Will continue to monitor.
[2021-04-17 19:03] VITALS: BP 125/60
[2021-04-18] VITALS (8 sets, daily range): BP systolic 96–166; BP diastolic 48–101
--- NOTE | 2021-04-18 01:38 | NUR ---
UPON SHIFT REPORT, PT REPORTING 4/10 RIGHT HIP PAIN. PT RECEIVING PRN PO NORCO Q4HR. LEFT FOREARM IV NOTED TO HAVE REDNESS WITH TENDERNESS TO TOUCH, SITE TO BE DISCONTINUED, NEW SITE TO BE OBTAINED. UPON SHIFT ASSESSMENT, PT SLEEPING, AROUSING EASILY, AOX4. PT REPORTS 4/10 PAIN IN RIGHT HIP. PT RECEIVING PRN PO TRAMADOL Q4HR WITH PRN IV MORPHINE Q4HR AVAILABLE. PT DENIES SOB WHILE ON ROOM AIR. PT TOLERATING PO INTAKE OF FLUIDS AND REGULAR DIET WITHOUT ISSUE. PT WITHOUT NAUSEA OR EMESIS. PT VOIDING PER [facility] CATHETER, PATENT, SECUREMENT DEVICE IN PLACE. PT AMBULATING WITH X2 ASSIST TO BEDSIDE COMMODE, WEAKNESS NOTED. SENSATION INTACT, CAPILLARY REFILL LESS THAN 3SEC, PERIPHERAL PULSES PALPABLE IN ALL EXTREMITIES. LEFT FOREARM IV DISCONTINUED, NEW IV OBTAINED IN RIGHT AC. PT ENCOURAGED TO NOTIFY STAFF FOR ALL NEEDS, CALL LIGHT WITHIN REACH, BED ALARM ON, BED LOCKED IN LOWEST POSITION, FREQUENT MONITORING WILL CONTINUE.
[2021-04-18 04:22] LABS: HEMATOCRIT 32.4 % (37.0-47.0); HEMOGLOBIN 10.8 gm/dL (12.0-15.0); MCH 30.1 pg (26.0-34.0); MCHC 33.4 g/dL (28.0-37.0); MCV 90.3 fL (80.0-100.0); RBC 3.58 mil/uL (4.20-5.00); RDW 13.4 % (10.5-14.5); WBC 7.2 thou/uL (4.0-11.0)
--- NOTE | 2021-04-18 09:08 | NUR ---
Assumed care of pt at 0700. Pt a&ox3-4. Pain controlled with prn pain medications. IVF infusing. Physical therapy will work with patient this am. Dressing c/d/i. Call light within reach. Will continue to monitor.
--- NOTE | 2021-04-18 10:53 | NUR ---
85 y/o woman who had a fall at home at night, landed on her right side. She denies loss of consciousness. She has pain in her right hip. Had right hip surgery. inpatient rehab vs home with home health. Chart review. Discussed during los with the hospitalist and while weston was visiting with donovan. Weston spoke with Dr Sharma, anticipated il home today with home health and fww. She will work with PT this afternoon to work on step, she has 1 step to enter the home. She prefers to go home if possible related to her w/ dementia. A & o x person ,place, and time. Able to make her needs know. Prior to hospital she was independent, able to assist her at home as needed. Manage own medication and her 's medication as well. Will cont. following as needed.
[2021-04-18] MEDS ORDERED: NORCO5 PO (12:43)
== END 2021-04-18 16:45 | disposition home health service (06) | DRG 481 ==
LOC: ER 11:07 → 4S 13:36 → EROBS 13:36 → 4S 17:35
PROVIDERS: Nurse Practitioner; Orthopaedic Surgery Sports Medicine; ADMIT Surgery; ATTEND Surgery
PROC: 0QS634Z Reposition Right Upper Femur with Internal Fixation Device, Percutaneous Approach (ICD-10-PCS; principal; 2021-04-16)
DX: S72.001A Fracture of unspecified part of neck of right femur, initial encounter for closed fracture (principal); D62 Acute posthemorrhagic anemia; M47.816 Spondylosis without myelopathy or radiculopathy, lumbar region; E03.9 Hypothyroidism, unspecified; I10 Essential (primary) hypertension; H54.7 Unspecified visual loss; E66.9 Obesity, unspecified; M21.051 Valgus deformity, not elsewhere classified, right hip; Z20.822 Contact with and (suspected) exposure to COVID-19; W01.0XXA Fall on same level from slipping, tripping and stumbling without subsequent striking against object, initial encounter; Z96.1 Presence of intraocular lens; Z28.21 Immunization not carried out because of patient refusal; I69.320 Aphasia following cerebral infarction; Z90.49 Acquired absence of other specified parts of digestive tract; Z79.01 Long term (current) use of anticoagulants; Z90.710 Acquired absence of both cervix and uterus; Z98.42 Cataract extraction status, left eye; Z98.41 Cataract extraction status, right eye; Z86.711 Personal history of pulmonary embolism; Z79.899 Other long term (current) drug therapy; Z79.82 Long term (current) use of aspirin; Z88.6 Allergy status to analgesic agent; Z68.25 Body mass index [BMI] 25.0-25.9, adult; Y93.89 Activity, other specified; Y92.89 Other specified places as the place of occurrence of the external cause; Y99.8 Other external cause status
CPT/HCPCS: 10195; 50010; 50101; 50386; 51412; 51538; 53400; 56524; 57092; 62110; 62900; 70005

== ENCOUNTER → 2021-06-29 | Outpatient (CLI) | payer OTHER ==
[~2021-06-29] VITALS: Ht 157.5 cm; Wt 67.1 kg
[~2021-06-29] MED LIST changes: +NORCO5 PO
--- NOTE | ~2021-06-29 | HPC ---
[facility] [place] [address] PAIN MANAGEMENT CONSULTATION Name: KO HARRISON Room #: REG NIA Bri#: [id number] Admission: 06/29/21 Attend Phys: Raul Faustin DO Discharge: Date of : 37 Report #: [id number] THIS REPORT FOR: cc: Anselmo Estrada,Raul Lowe DO ~ cc: Anselmo Estrada DO DATE OF SERVICE: 06/29/2021 REFERRING PHYSICIAN: Dr. Anselmo Estrada. CHIEF COMPLAINT: Bilateral SI joint pain. 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 She undergoes bilateral SI joint injections periodically with excellent benefit. Most recent injection according to the patient, gave about 80% improvement in overall pain. The patient unfortunately sustained a hip fracture after a fall, sustained in 04/15/2021. The patient was brought to the hospital here at [facility] and underwent a right hip percutaneous pinning. The patient tolerated the procedure well, was discharged from the hospital on 04/18. She has been participating in physical therapy since that time. She states that physical therapy and activities of climbing stairs and ambulating with a cane, has exacerbated her bilateral SI joint pain to the point where she returns for injections. She is placing pain today at 2/10. Pain is sharp and intermittent in nature, only present when walking, standing or climbing stairs. It does progress throughout the day, which is consistent with the patient's SI joint dysfunction. She returns today in followup visit requesting a bilateral SI joint injection under fluoroscopic guidance and to receive refills of her tramadol that she takes on an as needed basis. ALLERGIES: AMOXICILLIN AND CELECOXIB. CURRENT MEDICATIONS: Tramadol, hydrochlorothiazide, Eliquis, aspirin, multivitamin, levothyroxine. SOCIAL HISTORY: The patient denies tobacco. Denies IV or illicit drug use. Denies any chronic alcohol use. She is retired, retired years ago. She is accompanied by her who is present in our waiting room. IMAGING: No new imaging available. PQRS: The patient has known arthritic changes of lumbar spine, bilateral SI joint, bilateral hips and knees. No rheumatoid arthritis. The patient is placing current pain score 2/10. She is a fall risk and has had a fall in the [address] [address] PAIN MANAGEMENT CONSULTATION Name: KO HARRISON Room #: REG CLI Bri#: [id number] Admission: 06/29/21 Attend Phys: Raul Faustin DO Discharge: Date of : 39 Report #: [id number] last 3 months leading to a fracture of the right femur. She is on blood thinners and has continued on her Eliquis. She is treated for hypertension. She is on chronic opioids, has a low opiate addiction potential based on assessment tool. Pain impact high at 50/70. PHYSICAL EXAMINATION: VITAL SIGNS: Blood pressure 98/68, pulse 60, respiratory rate 16 and unlabored. The patient 97% on room air. Height 5 feet 2 inches tall, weight 148 pounds, BMI calculated 27.1. GENERAL: Well-developed, well-nourished, well-hydrated 86-year-old female appearing stated age, pain is rated today 2/10. HEENT: Normocephalic, atraumatic. She is wearing a mask in compliance with COVID-19 regulations and in compliance with hospital policy. EXTREMITIES: Show no clubbing, no cyanosis. No appreciable edema. MUSCULOSKELETAL: Lower extremity strength is symmetrical, but there is some weakness noted with hip flexion on the right due to previous surgery. She is continuing to participate in physical activity, trying to strengthen this area. There is deconditioning noted bilaterally. Thigh thrust maneuver is positive bilaterally. Fabere's test is positive bilaterally. Pranay's test is positive bilaterally. ASSESSMENT: 1. Bilateral SI joint pain. 2. Bilateral sacroiliac joint osteoarthritis. 3. Chronic lumbar radiculopathy. 4. Facet arthropathy of lumbar spine. 5. Chronic intractable pain. 6. Postsurgical pain, status post right hip pinning. PLAN: 1. The patient returns today in followup visit requesting bilateral SI joint injections under fluoroscopic guidance. She reports excellent benefit with previous injections, 80% improvement in overall pain. Unfortunately, her symptoms have reoccurred. She returns today requesting bilateral SI joint injections under fluoroscopic guidance. She is also requesting refill of her tramadol, which she takes p.r.n. She is denying side effects to the medication including sleepiness, disorientation, confusion, mental slowing or constipation. We reviewed the fact that opiate medications are being used to provide analgesia adequate to support activities of daily living, not attempting to achieve a specific pain score on the 0-10 Visual Analog Scale. The current opiate medications are providing sufficient analgesia to allow the patient to participate in activities of daily living. The patient is not exhibiting any aberrant behavior suggestive of drug diversion. The patient is not having any adverse reactions to medications. The patient is not suffering from daytime somnolence or mental acuity changes. The patient is managing opiate-induced [address] [address] PAIN MANAGEMENT CONSULTATION Name: KO HARRISON Room #: REG NIA [facility].#: [id number] Admission: 06/29/21 Attend Phys: Raul Faustin DO Discharge: Date of : 37 Report #: [id number] constipation with appropriate itet-mll-qrvwecn agents and dietary considerations. The patient was counseled on concern for caution with operating a motor vehicle while using opiate medications. A physical exam was performed and the patient's functional status was evaluated. All patients with back pain were advised against the bed rest greater than 4 days and were advised to return to normal activities. Pain score assessment was noted and the treatment plan was reviewed with the patient. All current medications, both prescribed and OTC were reviewed and reconciled on the electronic medical record. Tobacco screening was accomplished and smoking cessation was advised when indicated. BMI was noted and diet/exercise modification was recommended for all patients following outside normal parameters. I reviewed with the patient today their responsibilities to safeguard prescription medications, reviewed their responsibility to utilize medications only as prescribed by the physician. They are to seek and receive pain medications only from 1 physician group ( [facility]). They are to use 1 pharmacy and keep the clinic informed if they change pharmacies. Their responsibilities include making followup visits in a timely fashion and to avoid abrupt discontinuation of medication usage. Their responsibilities further include bringing their medications (bottles from the pharmacy with residual pills) to the visit for possible confirmation of pill counts and the patient understands it is their responsibility to submit to random drug screens to ensure both that the medications prescribed are present, and that no other controlled substances are present. All prescriptions provided today were generated electronically. 2. The patient was provided prescription of tramadol 100 mg dose. She takes this 3 times a day. I have given the patient #180 tablets of the 50 mg tramadol as she cannot obtain 100 mg tablets in her area. The 180 is for 1 month worth of medication. She was given refills x2 or essentially 3 months' worth of medication. These prescriptions were sent via e-script to local pharmacy. We did receive confirmation they are received and being processed. 4. We will see the patient back in followup visit on an as needed basis. We are hopeful the patient once again see good and prolonged benefit with the bilateral SI joint injections provided today. PROCEDURE NOTE. DESCRIPTION OF PROCEDURE: Bilateral sacroiliac joint injections under fluoroscopic guidance. After obtaining written consent, the patient was taken back to fluoroscopy suite, placed in prone position with pillow under abdomen to decrease lumbar lordosis. Skin overlying the gluteal sacral area was then prepped and draped in aseptic fashion using chlorhexidine. Fluoroscopic imaging was used to identify [address] [address] PAIN MANAGEMENT CONSULTATION Name: KO HARRISON Room #: REG NIA Gregory#: [id number] Admission: 06/29/21 Attend Phys: Raul Faustin DO Discharge: Date of : 37 Report #: [id number] the SI joints bilaterally. Optimal position of the fluoroscope was noted once the joint spaces were first visualized. Two A 22-gauge 3-1/2 inch spinal needles with bent tips were advanced towards the sacroiliac joints, both on the left and right side. Bristol were advanced until reaching the inferior recess of the joint. Bristol were then advanced into the joints, but not into the articular cartilage. After negative aspiration for heme, 0.6 mL of Omnipaque injected on the right and 0.4 mL of Omnipaque injected on the left, demonstrating excellent right and left sacroiliac joint arthrograms. After negative aspiration for heme, 2.5 mL solution containing 1 mL 40 mg per mL, 40 mg total triamcinolone along with 1.5 mL of bupivacaine 0.5% was injected at each location. The needles were retracted senior care, flushed with 1 mL of 1% lidocaine at each site and then removed. Sterile bandage placed over each injection sites. The patient tolerated the procedure well, carefully escorted to recovery room in stable condition. No apparent complications. After meeting our discharge criteria, the patient discharged home. By: 0915 [id number] Raul Faustin DO /nt
[2021-06-29 09:32] VITALS: BP 98/68
--- NOTE | 2021-06-29 10:12 | NUR ---
Pain Clinic Assessment: 1. History of Osteoarthritis: HANDS HIPS History of Rheumatoid Arthritis: Not Applicable 2. Height: 5 ft. 2 in. 157.5 cm. Weight: 148.0 lb. oz. 67.132 kg. Patient's BMI: 27.1 3. Vital Signs: BP: 98/68 Pulse: 60 Resp: 16 Temp: 02 Sat: 97 ECG Mon: 4. Pain Intensity: 2 5. Fall Risk: Dizziness: N Needs help standing or walking: Y Fallen in the last 3 months: Y Fall risk comments: 6. Patient on Blood Thinner: eliquis 7. History of Hypertension: Y 8. Opioid Therapy greater than 6 weeks: Y Opiate Contract Signed: 9. Risk Assessment Tool Provided: LOW RISK 06/06 10. Functional Assessment Tool: 11. Recreational Drug Use: Never Drug Type: Tobacco Use: Never Smoker Tobacco Type: Amount or Packs/day: How Many Years: Alcohol Use: No Frequency: Quant:
== END | disposition home or self-care (01) ==
LOC: PAIN 09:01
PROVIDERS: ATTEND Anesthesiology Pain Medicine
DX: M53.3 Sacrococcygeal disorders, not elsewhere classified (principal); M47.26 Other spondylosis with radiculopathy, lumbar region; G89.29 Other chronic pain; I10 Essential (primary) hypertension; M19.90 Unspecified osteoarthritis, unspecified site; Z98.890 Other specified postprocedural states; Z79.899 Other long term (current) drug therapy; Z87.891 Personal history of nicotine dependence; Z88.0 Allergy status to penicillin